=== PATIENT | male | born 1975 | race Two or more races ===

== ENCOUNTER 2016-10-28 14:43 | Emergency (ER) | payer OTHER ==
[2016-10-28 15:00] VITALS: TEMP 97.8; BMI 35.5
--- NOTE | 2016-10-28 15:04 | PDOC ---
[id number] [id number] Migraine Headache/NAUSE VOMITING Time Seen by Provider: 10/28/16 14:58 - History of Present Illness Initial Comments: History obtained via [employer] phones. Pt is [place] speaking. 41 y/o M w/sig PMH of muscular dystrophy presents to the ER w/ c/o dizziness and abdominal pain for the past several days. Dizziness usually lasts for a few seconds but today it remained for 3 hours. He had both sensations of feeling dizzy and as if the room was spinning. The dizziness is improving compared to when it first started despite the prolonged duration. He has had dizziness multiple times in the past, last time being 3-4 weeks ago. He did not seek help for it as it did not last for long. He also c/o abd pain that come and goes and is felt in his whole abdomen. The pain at its worst is rated as a 8/10. This morning he had one episode of emesis which was non-bloody but has not had this vomiting in the past several days. Last BM was 2am last night and he has not passed gas since this morning. He also c/o clogged feeling in his R ear and has used drops to try and clear his ear but has not felt any relief. He has also noticed swelling outside of his R ear but no drainage. Denies any [place], vision changes, ringing in ears, CP, SOB, fever, chills, diarrhea, blood in stool. Does not follow with neurologist. Sees PCP Dr. Narendra Lima. Last saw him in July. 10/28/16 16:21 Past History - Past Medical History Allergies/Adverse Reactions: Allergies Allergy/AdvReac Type Severity Reaction Status Date / Time Penicillins Allergy Rash Verified 10/28/16 15:00 Home Medications: Ambulatory Orders NK [No Known Home Medication] 04/02/16 - Immunization History Immunization Up to Date: Yes - Psycho/Social/Smoking Cessation Hx Anxiety: No Suicidal Ideation: No Smoking Status: No Smoking History: Never smoked Have you smoked in the past 12 months: No Number of Cigarettes Smoked Daily: 0 Information on smoking cessation initiated: No Hx Alcohol Use: No Drug/Substance Use Hx: No Substance Use Type: None Hx Substance Use Treatment: No Review of Systems - Review of Systems Able to Perform ROS?: Yes Comments:: CONSTITUTIONAL: Absent: fever, chills, diaphoresis, generalized weakness, malaise, loss of appetite HEENT: +ear pain, leila-ear swelling Absent: rhinorrhea, nasal congestion, throat pain, throat swelling, difficulty swallowing, mouth swelling,eye pain, visual Changes CARDIOVASCULAR: Absent: chest pain, syncope, palpitations, irregular heart rate , lightheadedness, peripheral edema RESPIRATORY: Absent: cough, shortness of breath, dyspnea with exertion, orthopnea, wheezing, stridor, hemoptysis GASTROINTESTINAL: +abd pain, vomiting, nausea Absent: diarrhea, constipation, melena, hematochezia GENITOURINARY: Absent: dysuria, frequency, urgency, hesitancy, hematuria, flank pain, genital pain ENDOCRINE:Absent: unexplained weight gain, unexplained weight loss, heat intolerance, cold intolerance NEUROLOGIC: +dizziness Absent: headache, seizure, mental status changes, bladder or bowel incontinence PSYCHIATRIC: Absent: anxiety, depression, suicidal or homicidal ideation, hallucinations 10/28/16 16:14 10/28/16 16:14 *Physical Exam - Vital Signs Last Vital Signs Temp Pulse Resp BP Pulse Ox 97.8 F 89 18 103/78 100 10/28/16 14:45 10/28/16 14:45 10/28/16 14:45 10/28/16 14:45 10/28/16 14:45 - Physical Exam Comments: GENERAL: Well developed, well nourished. Awake and alert. No acute distress. HEENT: +impacted L and R ears. +R ear tenderness with otoscopic examination. Normocephalic, atraumatic. PERRLA, EOMI. No conjunctival pallor. Sclera are non- icteric. Moist mucous membranes. NECK: Supple. Full ROM. No lympadenopathy. CARDIOVASCULAR: Regular rate and rhythm. No murmurs, rubs, or gallops. PULMONARY: No evidence of respiratory distress. Lungs clear to auscultation bilaterally. No wheezing, rales or rhonchi. ABDOMINAL: Soft. Non-tender. Non-distended. No rebound or guarding. No organomegaly. Normoactive bowel sounds. EXTREMITIES: No edema. No calf tenderness. SKIN: Warm and dry. Normal capillary refill. No rashes. No jaundice. NEUROLOGICAL: Alert, awake, appropriate. Cranial nerves 2-12 grossly intact. No motor deficits in the in face. Normal speech. PSYCHIATRIC: Cooperative. Good eye contact. Appropriate mood and affect. Heart Score/ECG Review - ECG Intrepretation Comment:: NSR @ 72 bpm QTc 438 ED Treatment Course - LABORATORY CBC & Chemistry Diagram: 10/28/16 17:19 10/28/16 17:19 Medical Decision Making - Medical Decision Making 10/28/16 16:20 Ordered: CBC, CMP, lipase, EKG, Head CT, cardiac profile, abd plain film flat and upright, fluids (NS), meclizine po, zofran iv 10/28/16 17:00 Cerumen disimpaction with peroxide and saline mix (1:2) done in R ear. Will saline flush in 20 min. Then will repeat in R ear. 10/28/16 17:25 R ear flushed with saline with some return of cerumen. Will use peroxide and saline mix (1:2) in L ear. Will flush in 20 min. 10/28/16 17:50 L ear flushed with saline with return of cerumen. Head CT still pending. *DC/Admit/Observation/Transfer Diagnosis at time of Disposition: Vertigo Cerumen impaction Qualifiers: Laterality: right Qualified Code(s): H61.21 - Impacted cerumen, right ear - Discharge Dispostion Disposition: HOME Condition at time of disposition: Stable - Referrals Referrals: Narendra Lima MD [Primary Care Provider] - - Patient Instructions Printed Discharge Instructions: DI for Cerumen Impaction, DI for Hyperkalemia, DI for Benign Paroxysmal Positional Vertigo Additional Instructions: please followup with your regular physician
--- NOTE | 2016-10-28 15:20 | PDOC ---
Attending Attestation - Resident Resident Name: BethelMarcos - ED Attending Attestation I have performed the following: I have examined & evaluated the patient, The case was reviewed & discussed with the resident, I agree w/resident's findings & plan, Exceptions are as noted - HPI HPI: 10/28/16 16:40 41y/o M muscular dystrophy and h/o vertigo p/w 2 complaints: clogged R ear with vertigo for several days, and today intermittent abdominal cramping with nbnb emesis. no abd pain now, no generalized [place], no vision change/speech change/focal deficit. - Physicial Exam PE: 10/28/16 16:41 VSS PERRL, EOMI impacted cerumen in R ear canal, no external otitis neck supple abd soft/nt/nd bs nl. neuro nonfocal, baseline muscle atrophy but fnf intact and full strength. - Medical Decision Making 10/28/16 16:42 Patient seen and evaluated with the resident. I agree with the overall evaluation, assessment, and management with the following summary of visit: 41y/o M with exacerbation of vertigo, likely peripheral 2/2 impaction, r/o underlying infection. low risk overall for CVA. Abdomen benign, vomiting seems more likely 2/2 vertigo. R/O SBO given decreased rectal output. labs, ua, ekg ct head. AXR will irrigate R ear and re-examine. Trial of iv fluids and zofran for nausea/vomiting. Meclizine for vertigo. Reassess: Patient was signed out to the oncoming ED physician to follow-up the results, reassess the patient, and dispo accordingly. Heart Score/ECG Review #1 ECG reviewed & interpreted by me at: 15:08 General ECG Interpretation: Sinus Rhythm, Normal Rate (72), Normal Intervals ( qtc 438), No acute ischemic changes
[2016-10-28] MEDS ORDERED: SODIUM CHLORIDE 1,000 ML IV STA (16:28)
[2016-10-28] MEDS ORDERED: METOCLOPRAMIDE HCL INJECTION 10 MG/2 ML VIAL IVPB ONE (16:28)
[2016-10-28] MEDS ORDERED: MECLIZINE HCL 25 MG TABLET (FP) PO ONE (16:29)
[2016-10-28] MEDS ORDERED: ONDANSETRON 4 MG/2 ML VIAL IVPB ONE (16:44)
[2016-10-28] MEDS ORDERED: MECLIZINE HCL 25 MG TABLET (FP) ONE (17:22)
[2016-10-28] MEDS ORDERED: ONDANSETRON 4 MG/2 ML VIAL ONE (17:22)
[2016-10-28 17:42] LABS: BASOPHIL 0.9 % (0-2.0); MCH 29.1 pg (25.7-33.7); MCHC 33.2 g/dl (32.0-35.9); MEAN CELL VOLUME 87.6 fl (80-96); MEAN PLT VOLUME 9.1 fl (7.5-11.1); NEUTROPHILS 63.4 % (42.8-82.8); PLATELET COUNT 188 K/MM3 (134-434); RDW 13.9 % (11.9-15.9); WHITE BLOOD COUNT 6.2 K/mm3 (4.0-10.0)
[2016-10-28 18:02] LABS: ALBUMIN 3.6 g/dl (3.4-5.0); ANION GAP 6 (8-16); CALCIUM 9.1 mg/dL (8.5-10.1); CO2 30 mmol/L (21-32); COCKROFT - GAULT 226.3; CREATININE 0.6 mg/dL (0.7-1.3); GLUCOSE,RANDOM 85 mg/dL (74-106); SGOT/AST 60 U/L (15-37); SGPT/ALT 83 U/L (12-78)
[2016-10-28 18:06] LABS: ALK PHOS 79 U/L (45-117); BILIRUBIN,TOTAL 0.5 mg/dL (0.2-1.0); TOT PROT 6.6 g/dl (6.4-8.2); TROPONIN I 0.02 ng/ml (0.00-0.05)
[2016-10-28 20:12] LABS: URINE APPEARANCE CLEAR; URINE BILIRUBIN NEGATIVE (NEGATIVE); URINE BLOOD NEGATIVE (NEGATIVE); URINE COLOR STRAW; URINE GLUCOSE (UA) NEGATIVE (NEGATIVE); URINE KETONE NEGATIVE (NEGATIVE); URINE LEUK ESTERASE NEGATIVE (NEGATIVE); URINE NITRITE NEGATIVE (NEGATIVE); URINE PROTEIN NEGATIVE (NEGATIVE); URINE UROBILINOGEN NEGATIVE E.U./dl (0.2-1.0)
[2016-10-28] MEDS ORDERED: SODIUM POLYSTYRENE SULFONATE 15 GM/60 ML BOTTLE PO ONE (20:26)
--- NOTE | 2016-10-28 20:26 | PDOC ---
*Physical Exam - Vital Signs Last Vital Signs Temp Pulse Resp BP Pulse Ox 97.8 F 89 18 103/78 100 10/28/16 14:45 10/28/16 14:45 10/28/16 14:45 10/28/16 14:45 10/28/16 14:45 ED Treatment Course - LABORATORY CBC & Chemistry Diagram: 10/28/16 17:19 10/28/16 17:19 - ADDITIONAL ORDERS Additional order review: Laboratory Results 10/28/16 10/28/16 10/28/16 20:00 17:19 17:19 Sodium 141 Potassium 5.4 H D Chloride 105 Carbon Dioxide 30 Anion Gap 6 L BUN 15 Creatinine 0.6 L Creat Clearance w eGFR > 60 Random Glucose 85 D Calcium 9.1 Total Bilirubin 0.5 D AST 60 H D ALT 83 H D Alkaline Phosphatase 79 Creatine Kinase 276 Creatine Kinase Index 2.5 CK-MB (CK-2) 6.902 H CK-MB (CK-2) Rel Index Cancelled Troponin I 0.02 Total Protein 6.6 Albumin 3.6 Lipase 114 Urine Color Straw Urine Appearance Clear Urine pH 7.0 Urine Protein Negative Urine Glucose (UA) Negative Urine Ketones Negative Urine Blood Negative Urine Nitrite Negative Urine Bilirubin Negative Urine Urobilinogen Negative Ur Leukocyte Esterase Negative 10/28/16 17:19 RBC 5.28 MCV 87.6 MCHC 33.2 RDW 13.9 MPV 9.1 Neutrophils % 63.4 D Lymphocytes % 30.5 D Monocytes % 4.2 Eosinophils % 1.0 Basophils % 0.9 - Medications Given in the ED: ED Medications Discontinued Medications Generic Name Dose Route Start Last Admin Trade Name Freq PRN Reason Stop Dose Admin Sodium Chloride 1,000 mls @ 1,000 mls/hr 10/28/16 16:28 10/28/16 17:37 Normal Saline - IV 10/28/16 17:27 1,000 mls/hr ASDIR STA Administration Meclizine HCl 50 mg 10/28/16 16:29 10/28/16 17:24 Antivert - PO 10/28/16 16:30 50 mg ONCE ONE Administration Metoclopramide HCl 10 mg 10/28/16 16:28 10/28/16 19:48 Reglan Injection - IVPB 10/28/16 16:29 Not Given ONCE ONE Ondansetron HCl 4 mg 10/28/16 16:44 10/28/16 17:32 Zofran Injection IVPB 10/28/16 16:45 4 mg ONCE ONE Administration Medical Decision Making - Medical Decision Making 10/28/16 20:24 ct scan head no acute intracranial pathology abdominal radiograph-no obstructive pattern cbc is normal comp shows k=5.4, pt will take kayexalate po RX eardrops for cerumen discharge home ear cerumen impaction/vertigo *DC/Admit/Observation/Transfer Diagnosis at time of Disposition: Vertigo Impacted cerumen Qualifiers: Laterality: right Qualified Code(s): H61.21 - Impacted cerumen, right ear - Discharge Dispostion Disposition: HOME Condition at time of disposition: Stable - Referrals Referrals: Narendra Lima MD [Primary Care Provider] - - Patient Instructions Printed Discharge Instructions: DI for Cerumen Impaction, DI for Benign Paroxysmal Positional Vertigo, DI for Hyperkalemia Additional Instructions: please followup with your regular physician - Post Discharge Activity
[2016-10-28] MEDS ORDERED: SODIUM POLYSTYRENE SULFONATE 15 GM/60 ML BOTTLE ONE (20:41)
[2016-10-28 21:05] VITALS: BP 113/79; PULSE 73
--- NOTE | 2016-10-29 11:11 | EKG ---
Test Reason : Blood Pressure : / mmHG Vent. Rate : 072 BPM Atrial Rate : 072 BPM P-R Int : 196 ms QRS Dur : 088 ms QT Int : 400 ms P-R-T Axes : 028 005 009 degrees QTc Int : 438 ms NORMAL SINUS RHYTHM MINIMAL VOLTAGE CRITERIA FOR LVH, MAY BE NORMAL VARIANT BORDERLINE ECG WHEN COMPARED WITH ECG OF 02-APR-2016 04:44, VENT. RATE HAS DECREASED BY 48 BPM INCOMPLETE RIGHT BUNDLE BRANCH BLOCK IS NO LONGER PRESENT CLINICAL CORRELATION IS RECOMMENDED Confirmed by ALMA VELASCO MD ([id number]) on 10/29/2016 11:11:17 AM Referred By: Confirmed By:ALMA VELASCO MD
== END 2016-10-28 21:06 | disposition home or self-care (01) ==
LOC: JER 14:43
PROC: 3E1B78Z Irrigation of Ear using Irrigating Substance, Via Natural or Artificial Opening (ICD-10-PCS; principal; 2016-10-28)
DX: R42 Dizziness and giddiness (principal); H61.23 Impacted cerumen, bilateral
CPT/HCPCS: 36415; 69209; 70450-TC; 74020-TC; 80053; 81003; 82550; 82553; 83690; 84484; 85025; 93005; 93010; 99284-25

== ENCOUNTER 2017-07-08 13:05 | Emergency (ER) | payer OTHER ==
[2017-07-08 13:27] VITALS: BP 138/84; PULSE 108; TEMP 98.1; BMI 32.8
--- NOTE | 2017-07-08 15:15 | PDOC ---
History of Present Illness - General Chief Complaint: Abscess Boil Stated Complaint: WOUND TO HEAD Time Seen by Provider: 07/08/17 15:02 History Source: Patient Exam Limitations: No Limitations - History of Present Illness Initial Comments: CHIEF COMPLAINT: 42 y/o afebrile male with PMH muscular dystrophy c/o abscess to right side of neck x 1 week. HISTORY OF PRESENT ILLNESS: The patient states he felt feverish last week but not since then. He states the area is painful. He denies all other complaints and states it is not draining. Vital signs on arrival are notable for pulse of 108 and O2 sat of 93% on RA REVIEW OF SYSTEMS: GENERAL/CONSTITUTIONAL: Subjective fever 1 week ago - resolved. No weakness. No weight change. HEAD, EYES, EARS, NOSE AND THROAT: No change in vision. No ear pain or discharge. No sore throat.. MUSCULOSKELETAL: No joint or muscle swelling or pain. No neck or back pain. SKIN: +Painful abscess NEUROLOGIC: No headache, vertigo, loss of consciousness, or loss of sensation. PHYSICAL EXAM: GENERAL: The patient is awake, alert, and fully oriented, in no acute distress. HEAD: Normal with no signs of trauma. EXTREMITIES: Normal range of motion, no edema. NEUROLOGICAL: Normal speech, normal gait. SKIN: 2cm in diameter raised fluctuant abscess on right side of neck just inside hairline with central head. Past History - Past Medical History Allergies/Adverse Reactions: Allergies Allergy/AdvReac Type Severity Reaction Status Date / Time Penicillins Allergy Rash Verified 07/08/17 13:23 Home Medications: Ambulatory Orders Sulfamethoxazole/Trimethoprim [Bactrim Ds -] 1 tab PO BID #20 tablet 07/08/17 CVA: No COPD: No DVT: No Other medical history: MUSCULAR DYSTROPHY - Immunization History Immunization Up to Date: Yes - Suicide/Smoking/Psychosocial Hx Smoking Status: No Smoking History: Never smoked Have you smoked in the past 12 months: No Number of Cigarettes Smoked Daily: 0 Information on smoking cessation initiated: No Hx Alcohol Use: No Drug/Substance Use Hx: No Substance Use Type: None Hx Substance Use Treatment: No *Physical Exam - Vital Signs Last Vital Signs Temp Pulse Resp BP Pulse Ox 98.1 F 108 H 17 138/84 93 L 07/08/17 13:24 07/08/17 13:24 07/08/17 13:24 07/08/17 13:24 07/08/17 13:24 Procedures - Incision and Drainage I&D Site: Right: Other (neck) Betadine cleansed: Yes Blade Size: 10 Plain Packing: No Complications: none Dressing: Yes Medical Decision Making - Medical Decision Making A/P: 42 y/o male with right sided head/neck abscess. Incised and drained the abscess. Cleaned and loosely covered. Will send bactrim to rx. Sent wound culture. Instructed patient to keep wound clean/dry/loosely covered, take entire course of antibiotics and return to the ER with any worsening or concerning symptoms. The patient verbalizes understanding of all instructions, has no further questions and is awaiting discharge. *DC/Admit/Observation/Transfer Diagnosis at time of Disposition: Abscess of skin Qualifiers: Site of cutaneous abscess: neck Qualified Code(s): L02.11 - Cutaneous abscess of neck - Discharge Dispostion Disposition: HOME Condition at time of disposition: Improved - Prescriptions Prescriptions: Sulfamethoxazole/Trimethoprim [Bactrim Ds -] 1 tab PO BID #20 tablet - Referrals Referrals: Narendra Lmia MD [Primary Care Provider] - - Patient Instructions Printed Discharge Instructions: DI for Incision and Drainage of a Skin Abscess Additional Instructions: Discharge Instructions: -Please keep the area clean, dry and loosely covered. -A prescription for antibiotics was sent to your pharmacy; please take entire course -Follow up with your doctor within 1 week -Return to the ER with any worsening or concerning symptoms Instrucciones de descarga: -Por favor, mantenga el timmy limpia, seca y ligeramente cubierta. -Abby receta de antibiticos fue enviada a [facility]; por favor serafin todo el curso -Siga con mcf[facility]en doctor dentro de 1 semana -Volver a la germaine de urgencias con cualquier empeoramiento o sntomas Print Language: MACEDONIAN - Post Discharge Activity
== END 2017-07-08 15:28 | disposition home or self-care (01) ==
LOC: JERFT 13:05
PROC: 0J940ZZ Drainage of Right Neck Subcutaneous Tissue and Fascia, Open Approach (ICD-10-PCS; principal; 2017-07-08)
DX: L02.11 Cutaneous abscess of neck (principal); G71.0 Muscular dystrophy
CPT/HCPCS: 10160; 87070; 87077; 87205; 99281-25

== ENCOUNTER 2017-07-27 05:50 | Day surgery (SDC) | payer OTHER ==
[2017-07-27] MEDS ORDERED: ONDANSETRON 4 MG/2 ML VIAL IVPUSH ONE (07:26)
[2017-07-27] MEDS ORDERED: SODIUM CHLORIDE 0.9% 1000 ML INFUS.BAG IV ONE (07:26)
[2017-07-27] MEDS ORDERED: FAMOTIDINE 20 MG/50 ML IVPB 20 MG/50 ML MG IVPB ONE ×2 (07:26→07:55)
[2017-07-27] MEDS ORDERED: morphine CARPU-JECT 4 MG/1 ML DISP.SYRIN IVPUSH ONE (07:26)
--- NOTE | 2017-07-27 07:26 | PDOC ---
History of Present Illness - General Chief Complaint: Pain, Acute Stated Complaint: ABD PAIN Time Seen by Provider: 07/27/17 07:20 - History of Present Illness Initial Comments: 07/27/17 07:45 42yo male presents from home c/o diffuse abd pain that started at midnight and worsened around 4am after having a hard bm. Pt denies n/v. C/o diffuse abd pain. No radiation of the pain. Pt denies f/c. No urinary complaints. Pt denies prior hx of similar. Denies hematuria or difficulty starting his flow of urine. Pt denies cp/sob. Pt is writhing in pain. Pt denies all other complaints. 07/27/17 07:47 PMHx: gerd Pshx: adenoid removal Allergies: PCN Soc: denies smoking, etoh, drugs Past History - Past Medical History Allergies/Adverse Reactions: Allergies Allergy/AdvReac Type Severity Reaction Status Date / Time Penicillins Allergy Rash Verified 07/27/17 06:25 Home Medications: Ambulatory Orders Acetaminophen 650 mg PO PRN 07/27/17 Pantoprazole Sodium [Protonix] 40 mg PO DAILY 07/27/17 CVA: No COPD: No DVT: No - Immunization History Immunization Up to Date: Yes - Suicide/Smoking/Psychosocial Hx Smoking Status: No Smoking History: Never smoked Have you smoked in the past 12 months: No Number of Cigarettes Smoked Daily: 0 Information on smoking cessation initiated: No Hx Alcohol Use: No Drug/Substance Use Hx: No Substance Use Type: None Hx Substance Use Treatment: No Review of Systems - Review of Systems Able to Perform ROS?: Yes Is the patient limited Yakut proficient: No Constitutional: No: Chills, Fever Respiratory: No: Cough, Shortness of Breath Cardiac (ROS): No: Chest Pain ABD/GI: Yes: Abdominal cramping, Other (abdominal pain). No: Diarrhea, Nausea, Vomiting : No: Burning, Dysuria, Hematuria Musculoskeletal: No: Back Pain All Other Systems: Reviewed and Negative *Physical Exam - Vital Signs Last Vital Signs Temp Pulse Resp BP Pulse Ox 97.6 F 74 20 113/82 100 07/27/17 05:55 07/27/17 05:55 07/27/17 05:55 07/27/17 05:55 07/27/17 05:55 - Physical Exam General Appearance: Yes: Nourished, Appropriately Dressed, Apparent Distress, Obese HEENT: positive: EOMI, Normal ENT Inspection, Pharynx Normal. negative: Rhinorrhea Neck: positive: Trachea midline, Normal Thyroid, Supple. negative: Tender, Rigid Respiratory/Chest: positive: Lungs Clear, Normal Breath Sounds. negative: Respiratory Distress Cardiovascular: positive: Regular Rhythm, Regular Rate, S1, S2. negative: Edema Gastrointestinal/Abdominal: positive: Normal Bowel Sounds, Tender, Guarding ( voluntary guarding), Tenderness (diffuse). negative: Rebound Musculoskeletal: negative: CVA Tenderness Extremity: positive: Normal Capillary Refill, Normal Inspection, Normal Range of Motion Integumentary: positive: Normal Color, Dry, Warm Neurologic: positive: public health professor II-XII NML intact, Fully Oriented, Motor Strength 5/5 Heart Score/ECG Review - ECG Intrepretation Comment:: 07/27/17 08:19 sinus at 62 w 1st degree av block nl axis, nl interval, t wave inversions III which are nonspecific ED Treatment Course - LABORATORY CBC & Chemistry Diagram: 07/27/17 08:00 07/27/17 08:10 Medical Decision Making - Medical Decision Making 07/27/17 07:50 a/p: 42yo male with acute onset of diffuse abd pain concern for constipation vs pancreatitis vs colitis vs perf viscous given amount of pain will check labs, ua, ct abd/pelvis will medicate with ivf hydration, pain control, pepcid will give morphine for pain need UA lipase no abd surgical hx 07/27/17 11:23 discussed lab results with the patient ct shows early appendicitis call placed to dr. gonzalez pt updated with plan 07/27/17 12:[address] Gonzalez who will see the patient in consult recommends admission to hospitalist PMD is Dr. Lima 07/27/17 13:13 case discussed with [facility] - accepts pt to [facility] *DC/Admit/Observation/Transfer Diagnosis at time of Disposition: Acute appendicitis - Discharge Dispostion Condition at time of disposition: Fair Admit: Yes - Referrals Referrals: Narendra Lima MD [Primary Care Provider] - - Patient Instructions - Post Discharge Activity
[2017-07-27] MEDS ORDERED: MORPHINE SULFATE 10 MG/1 ML *VIAL ONE (07:54)
[2017-07-27] MEDS ORDERED: ONDANSETRON 4 MG/2 ML VIAL ONE (07:55)
[2017-07-27 09:27] LABS: ALBUMIN 3.5 g/dl (3.4-5.0); ANION GAP 8 (8-16); BLOOD UREA NITROGEN 15 mg/dL (7-18); CALCIUM 9.1 mg/dL (8.5-10.1); CHLORIDE 105 mmol/L (98-107); CO2 27 mmol/L (21-32); CREATININE 0.7 mg/dL (0.7-1.3); GLUCOSE,RANDOM 104 mg/dL (74-106); LIPASE 76 U/L (73-393); SGPT/ALT 109 U/L (12-78); SODIUM 140 mmol/L (136-145)
[2017-07-27 09:32] LABS: ALK PHOS 112 U/L (45-117); BILIRUBIN,TOTAL 0.6 mg/dL (0.2-1.0)
[2017-07-27 09:39] LABS: MAGNESIUM 2.2 mg/dL (1.8-2.4); POTASSIUM 5.6 mmol/L (3.5-5.1)
[2017-07-27 09:40] LABS: SGOT/AST 89 U/L (15-37)
[2017-07-27] MEDS ORDERED: LACTATED RINGERS SOLUTION 1000 ML INFUS.BAG IV ONE (09:46)
[2017-07-27 10:06] LABS: BASO % 0.4 % (0-2.0); EOS % 1.5 % (0-4.5); HEMATOCRIT 48.1 % (35.4-49); HEMOGLOBIN 16.1 GM/dL (11.7-16.9); LYMPH % 38.8 % (8-40); MCH 29.7 pg (25.7-33.7); MCHC 33.5 g/dl (32.0-35.9); MEAN CELL VOLUME 88.7 fl (80-96); MEAN PLT VOLUME 9.4 fl (7.5-11.1); MONO % 5.6 % (3.8-10.2); NEUT % 53.7 % (42.8-82.8); PLATELET COUNT 194 K/MM3 (134-434); RBC 5.43 M/mm3 (4.00-5.60); RDW 13.7 % (11.9-15.9); WHITE BLOOD COUNT 6.4 K/mm3 (4.0-10.0)
[2017-07-27 10:16] LABS: URINE APPEARANCE CLEAR; URINE BILIRUBIN NEGATIVE (NEGATIVE); URINE BLOOD NEGATIVE (NEGATIVE); URINE COLOR YELLOW; URINE GLUCOSE (UA) NEGATIVE (NEGATIVE); URINE KETONE NEGATIVE (NEGATIVE); URINE LEUK ESTERASE NEGATIVE (NEGATIVE); URINE NITRITE NEGATIVE (NEGATIVE); URINE PROTEIN NEGATIVE (NEGATIVE)
--- NOTE | 2017-07-27 12:12 | PDOC ---
*Physical Exam - Vital Signs Last Vital Signs Temp Pulse Resp BP Pulse Ox 97.6 F 74 20 113/82 100 07/27/17 05:55 07/27/17 05:55 07/27/17 05:55 07/27/17 05:55 07/27/17 05:55 07/27/17 12:10 42 YOM h/o of only T&A abdominal pain awoke him at midnight, had BM and it got even worse. Arrived to ED writhing in pain. All labs okay except lactate 2.4. CT with early appendicitis, multiple appendicoliths. ED Treatment Course - LABORATORY CBC & Chemistry Diagram: 07/27/17 08:00 07/27/17 08:10 - ADDITIONAL ORDERS Additional order review: Laboratory Results 07/27/17 07/27/17 07/27/17 09:16 08:10 08:10 Sodium 140 Potassium 5.6 H Chloride 105 Carbon Dioxide 27 Anion Gap 8 BUN 15 Creatinine 0.7 Creat Clearance w eGFR > 60 Random Glucose 104 D Lactic Acid 2.4 H* Calcium 9.1 Magnesium 2.2 Total Bilirubin 0.6 AST 89 H D ALT 109 H D Alkaline Phosphatase 112 D Total Protein 7.0 Albumin 3.5 Lipase 76 Urine Color Yellow Urine Appearance Clear Urine pH 7.0 Ur Specific [place] 1.021 Urine Protein Negative Urine Glucose (UA) Negative Urine Ketones Negative Urine Blood Negative Urine Nitrite Negative Urine Bilirubin Negative Urine Urobilinogen 2.0 Ur Leukocyte Esterase Negative 07/27/17 08:00 RBC 5.43 MCV 88.7 MCHC 33.5 RDW 13.7 MPV 9.4 Neutrophils % 53.7 Lymphocytes % 38.8 D Monocytes % 5.6 Eosinophils % 1.5 Basophils % 0.4 - Medications Given in the ED: ED Medications Discontinued Medications Generic Name Dose Route Start Last Admin Trade Name Freq PRN Reason Stop Dose Admin Famotidine/Sodium Chloride 20 mg in 50 mls @ 100 mls/hr 07/27/17 07:26 08:09 Pepcid 20 Mg Premixed Ivpb - IVPB 07/27/17 07:55 100 mls/hr ONCE ONE Administration Lactated Ringer's 1,000 ml 07/27/17 09:46 07/27/17 10:32 Lactated Ringers Solution IV 07/27/17 09:47 1,000 ml ONCE ONE Administration Morphine Sulfate 4 mg 07/27/17 07:26 07/27/17 08:08 Morphine Injection - IVPUSH 07/27/17 07:27 4 mg ONCE ONE Administration Ondansetron HCl 4 mg 07/27/17 07:26 07/27/17 08:09 Zofran Injection IVPUSH 07/27/17 07:27 4 mg ONCE ONE Administration Sodium Chloride 1,000 ml 07/27/17 07:26 07/27/17 08:53 Normal Saline - IV 07/27/17 07:27 1,000 ml ONCE ONE Administration Medical Decision Making - Medical Decision Making 07/27/17 12:[address] Thomas who recommends 2 GM ceftriaxone now and 500 mg Flagyl q8h. Antibiotic ordered placed as above. Consult order placed to Dr. Thomas. *DC/Admit/Observation/Transfer - Referrals Referrals: Narendra Lima MD [Primary Care Provider] - - Patient Instructions - Post Discharge Activity
[2017-07-27] MEDS ORDERED: CEFTRIAXONE 2 GM in DEXTROSE 5%-WATER - 100 ML IVPB ONE (12:17)
--- NOTE | 2017-07-27 12:17 | EKG ---
Test Reason : Blood Pressure : / mmHG Vent. Rate : 062 BPM Atrial Rate : 062 BPM P-R Int : 210 ms QRS Dur : 088 ms QT Int : 430 ms P-R-T Axes : 054 006 005 degrees QTc Int : 436 ms SINUS RHYTHM WITH 1ST DEGREE A-V BLOCK MINIMAL VOLTAGE CRITERIA FOR LVH, MAY BE NORMAL VARIANT ABNORMAL ECG WHEN COMPARED WITH ECG OF 28-OCT-2016 15:08, NO SIGNIFICANT CHANGE WAS FOUND BASELINE ARTIFACT Confirmed by ALMA VELASCO MD ([id number]) on 07/27/2017 12:17:06 PM Referred By: Confirmed By:ALMA VELASCO MD
[2017-07-27] MEDS ORDERED: CEFTRIAXONE 2 GM/100 ML BAG IVPB ONE (12:41)
[2017-07-27] MEDS ORDERED: MORPHINE SULFATE 10 MG/1 ML *VIAL IVPUSH PRN (13:08)
[2017-07-27] MEDS ORDERED: SODIUM CHLORIDE 1,000 ML IV SCH (13:15)
[2017-07-27] MEDS ORDERED: ONDANSETRON 4 MG/2 ML VIAL IVPUSH PRN (13:16)
--- NOTE | 2017-07-27 14:13 | CONSULT ---
- Consultation REQUESTING PROVIDER: Gerald ISLAS CONSULT REQUEST: We have been asked to surgically evaluate this patient for ( specify). PCP: HISTORY OF PRESENT ILLNESS: CTSVasile who is a 42 y/o male who presented w/ sudden onset of generalized abdominal pain starting at 8 PM last night now localized to the RLQ; pain is sharp and w/o radiation; worse w/ moving around; less w/ lying still; he denies n/v; he has no appetite; no other hx or GI/ c/ o. He came to the ER for evaluation. PMHx: muscle disease PSHx: tonsils, varicocoele; ? ear surgery Home Medications Medication Instructions Recorded Acetaminophen 650 mg PO PRN 07/27/17 Pantoprazole Sodium [Protonix] 40 mg PO DAILY 07/27/17 Allergies Allergy/AdvReac Type Severity Reaction Status Date / Time Penicillins Allergy Rash Verified 07/27/17 06:25 PHYSICAL EXAM: GENERAL: Awake, alert, and fully oriented, in no acute distress. HEAD: Normal with no signs of trauma. EYES: sclera anicteric, conjunctiva clear. NECK: Normal ROM, supple without lymphadenopathy, JVD, or masses. ABDOMEN: Soft, tender RLQ w/ guarding and rebound, not distended, normoactive bowel sounds, no masses. No organomegaly. Small reducible umbilical hernia Rovsings and psoas and obturator signs are present. MUSCULOSKELETAL: Normal ROM at all joints. No bony deformities or tenderness. No CVA tenderness. UPPER EXTREMITIES: 2+ pulses, warm, well-perfused. No cyanosis. Cap refill <2 seconds. No peripheral edema. LOWER EXTREMITIES: 2+ pulses, warm, well-perfused. No calf tenderness. No peripheral edema. NEUROLOGICAL: Normal speech, gait not observed. PSYCH: Cooperative in Citizen Of [place]. Good eye contact. Appropriate mood and affect. SKIN: Warm, dry, normal turgor, no rashes or lesions noted. Vital Signs Temperature 97.7 F 07/27/17 13:25 Pulse Rate 68 07/27/17 13:25 Respiratory Rate 20 07/27/17 13:25 Blood Pressure 109/72 07/27/17 13:25 O2 Sat by Pulse Oximetry (%) 99 07/27/17 13:25 Lab Results WBC 6.4 K/mm3 (4.0-10.0) 07/27/17 08:00 RBC 5.43 M/mm3 (4.00-5.60) 07/27/17 08:00 Hgb 16.1 GM/dL (11.7-16.9) 07/27/17 08:00 Hct 48.1 % (35.4-49) 07/27/17 08:00 MCV 88.7 fl (80-96) 07/27/17 08:00 MCHC 33.5 g/dl (32.0-35.9) 07/27/17 08:00 RDW 13.7 % (11.9-15.9) 07/27/17 08:00 Plt Count 194 K/MM3 (134-434) 07/27/17 08:00 Sodium 140 mmol/L (136-145) 07/27/17 08:10 Potassium 5.6 mmol/L (3.5-5.1) H 07/27/17 08:10 Chloride 105 mmol/L (98-107) 07/27/17 08:10 Carbon Dioxide 27 mmol/L (21-32) 07/27/17 08:10 Anion Gap 8 (8-16) 07/27/17 08:10 BUN 15 mg/dL (7-18) 07/27/17 08:10 Creatinine 0.7 mg/dL (0.7-1.3) 07/27/17 08:10 Random Glucose 104 mg/dL (74-106) D 07/27/17 08:10 Calcium 9.1 mg/dL (8.5-10.1) 07/27/17 08:10 CT a/p reviewed and is c/w early appendicitis. IMP: acute appendicitis PLAN: lap possible open appendectomy;r/b/t/a's d/w the patient in Citizen Of [place] and informed consent obtained; all ?'s were answered. Ángel Martinez MD FACS Visit type - Case Type Case Type: ED Admission - Emergency Emergency Visit: Yes Care time: The patient presented to the Emergency Department on the above date and was hospitalized for further evaluation of their emergent condition. - New patient This patient is new to me today: Yes Date on this admission: 07/27/17 - Critical Care Critical Care patient: No
[2017-07-27] MEDS ORDERED: BUPIVACAINE HCL/PF 0.5% (5MG/ML) 10 ML VIAL IJ ONE (15:36)
--- NOTE | 2017-07-27 16:11 | OP ---
Operative Note - Note: Operative Date: 07/27/17 Pre-Operative Diagnosis: acute appendicitis Operation: lap appendectomy Findings: acute appendicitis Post-Operative Diagnosis: Same as Pre-op Surgeon: Ángel Martinez Anesthesiologist/PLUCK SEPARATOR: Benji Lafleur Anesthesia: General Specimens Removed: appendix Estimated Blood Loss (mls): 10
[2017-07-27] MEDS ORDERED: ELECTROLYTE-148 SOLN 1,000 ML IV SCH (16:15)
[2017-07-27] MEDS ORDERED: oxyCODONE HCL 5 MG TABLET PO PRN (16:24)
[2017-07-27] MEDS ORDERED: ACETAMINOPHEN 325 MG TABLET (FP) PO PRN (16:24)
[2017-07-27 16:43] VITALS: BMI 34.2
--- NOTE | 2017-07-27 18:54 | HP ---
Admitting History and Physical - Admission Chief Complaint: abdominal pain History of Present Illness: 42 year old female with muscular dystrophy, gerd admitted with abdominal pain, leila umbilical since last night it worsened after a BM and he came to the ED. He denies fever, chills, he was taken to the OR shortly after noting to have acute appendicitis. Seen in the PACU he feels well, awake, tolerated surgery. 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) Infectious Disease: Yes: Other (pneumonia in March 2014) Musculoskeletal: Yes: Other (Myotonic muscular dystrophy) - Past Surgical History Past Surgical History: Yes: Tonsillectomy - Smoking History Smoking history: Never smoked Have you smoked in the past 12 months: No Aproximately how many cigarettes per day: 0 - Alcohol/Substance Use Hx Alcohol Use: No History of Substance Use: reports: None - Social History ADL: Independent Home Medications - Allergies Allergies/Adverse Reactions: Allergies Allergy/AdvReac Type Severity Reaction Status Date / Time Penicillins Allergy Rash Verified 07/27/17 06:25 - Home Medications Home Medications: Ambulatory Orders Acetaminophen 650 mg PO PRN 07/27/17 Pantoprazole Sodium [Protonix] 40 mg PO DAILY 07/27/17 Review of Systems - Review of Systems Constitutional: reports: No Symptoms Eyes: reports: No Symptoms HENT: reports: No Symptoms Neck: reports: No Symptoms Cardiovascular: reports: No Symptoms Respiratory: reports: No Symptoms Gastrointestinal: reports: Abdominal Pain Genitourinary: reports: No Symptoms Musculoskeletal: reports: No Symptoms Integumentary: reports: No Symptoms Endocrine: reports: No Symptoms Hematology/Lymphatic: reports: No Symptoms Psychiatric: reports: No Symptoms Physical Examination Vital Signs: Vital Signs Temperature 97.9 F 07/27/17 18:48 Pulse Rate 83 07/27/17 18:48 Respiratory Rate 20 07/27/17 18:48 Blood Pressure 120/70 07/27/17 18:48 O2 Sat by Pulse Oximetry (%) 98 07/27/17 18:48 Constitutional: Yes: No Distress Eyes: Yes: Conjunctiva Clear Neck: Yes: Supple Cardiovascular: Yes: Regular Rate and Rhythm, S1, S2 Respiratory: Yes: CTA Bilaterally, Diminished, On Nasal O2 Gastrointestinal: Yes: Normal Bowel Sounds, Soft, Other (abd incisions CDI) Extremities: Yes: WNL Edema: No Wound/Incision: Yes: Clean/Dry, Dressing Dry and Intact Neurological: Yes: Alert, Oriented, Cran Nerves II-XII Intact Labs: CBC, BMP 07/27/17 08:00 07/27/17 08:10 Imaging - Results Chest X-ray: Report Reviewed Cat Scan: Report Reviewed Problem List - Problems (1) Acute appendicitis Code(s): K35.80 - UNSPECIFIED ACUTE APPENDICITIS (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 Acute appendicitis - S/p appendectomy today - Received pre op abx - Morphine prn pain - cont ivf - clear diet - Surgery seeing 2. DVt - SCDs Dispo: - Home tomorrow pending surgery clearance Visit type - Emergency Visit Emergency Visit: Yes Care time: The patient presented to the Emergency Department on the above date and was hospitalized for further evaluation of their emergent condition. - New Patient This patient is new to me today: Yes Date on this admission: 07/27/17 - Critical Care Critical Care patient: No
[2017-07-28 07:30] LABS: BASO % 0.2 % (0-2.0); EOS % 0.1 % (0-4.5); HEMOGLOBIN 14.1 GM/dL (11.7-16.9); LYMPH % 25.1 % (8-40); MCHC 33.6 g/dl (32.0-35.9); MEAN CELL VOLUME 89.2 fl (80-96); MEAN PLT VOLUME 9.3 fl (7.5-11.1); MONO % 5.3 % (3.8-10.2); NEUT % 69.3 % (42.8-82.8); PLATELET COUNT 209 K/MM3 (134-434); RDW 13.5 % (11.9-15.9); WHITE BLOOD COUNT 8.4 K/mm3 (4.0-10.0)
[2017-07-28 07:58] LABS: ALBUMIN 3.1 g/dl (3.4-5.0); ALK PHOS 90 U/L (45-117); ANION GAP 7 (8-16); BILIRUBIN,TOTAL 0.6 mg/dL (0.2-1.0); BLOOD UREA NITROGEN 8 mg/dL (7-18); CALCIUM 9.1 mg/dL (8.5-10.1); CHLORIDE 103 mmol/L (98-107); CO2 31 mmol/L (21-32); CREATININE 0.5 mg/dL (0.7-1.3); GLUCOSE,RANDOM 99 mg/dL (74-106); POTASSIUM 4.7 mmol/L (3.5-5.1); SGOT/AST 31 U/L (15-37); SGPT/ALT 73 U/L (12-78); SODIUM 141 mmol/L (136-145); TOT PROT 5.8 g/dl (6.4-8.2)
--- NOTE | 2017-07-28 08:00 | PN ---
Progress Note (short form) - Note Progress Note: surgery POD #1 laparoscopic appendectomy, patient seen and examined at bedside. Pt states his pain is controlled, he is tolerating a clear diet and voiding without restriction. He denies any nausea, cp, SOB, or vomiting. Vital Signs Temp 98.1 F 07/28/17 06:00 Pulse 67 07/28/17 06:00 Resp 20 07/28/17 06:00 BP 101/60 07/28/17 06:00 Pulse Ox 98 07/27/17 21:00 Intake & Output 07/27/17 07/27/17 07/28/17 11:59 23:59 11:59 Intake Total 1750 900 Output Total 1450 600 Balance 300 300 Weight 180 lb 212 lb Intake: IV 1600 800 Plasma-Lyte 148 - 1,000 800 ml @ 75 mls/hr IV ASDIR HERNÁN Rx#:[id number] IVPB 100 Oral 150 Output: Urine 1450 600 Void 650 600 Other: Voiding Method Urinal Bowel Movement No Height 5 ft 8 in 5 ft 6 in Body Mass Index (BMI) 27.3 34.2 Weight Measurement Method Stated by Patient Weight Measurement Method Estimated by Staff CBC, BMP 07/28/17 06:45 PE: A&Ox3, NAD unlabored resp on 2L NC Abdomen obese, ND and NT in all quadrants, Incision sites C/D/I with no d/c, no evidence of tracking erythema. B/L LE compartments, soft, supple and non-tender, scds in place with + 2 pedal pulses Problem List - Problems (1) Acute appendicitis Assessment/Plan: S/p laparoscopic appendectomy doing well. 1) advance diet as tolerated 2) OOB as tolerated and up to chair for meals 3) DVT prophylaxis 4) D/c planning when appropriate Code(s): K35.80 - UNSPECIFIED ACUTE APPENDICITIS
--- NOTE | 2017-07-28 09:13 | PN ---
Progress Note (short form) - Note Progress Note: Attending Surgeon POD #1 Patient seen and evaluated; concur w/ a/p as outlined by MOIRA Ruvalcaba; d/c home to office f/u 7-10 days; once ambulating and tolerating a regular diet Ángel Martinez MD FAC
[2017-07-28] MEDS ORDERED: CEFTRIAXONE IN IS-OSM DEXTROSE 2 GM/50 ML BAG IVPB SCH (10:00)
[2017-07-28] MEDS ORDERED: PANTOPRAZOLE 40 MG TABLET (FP) PO SCH (10:00)
--- NOTE | 2017-07-28 10:29 | OP ---
DATE OF OPERATION: 07/27/2017 PREOPERATIVE DIAGNOSIS: Acute appendicitis. POSTOPERATIVE DIAGNOSIS: Acute appendicitis. PROCEDURE: Laparoscopic appendectomy. SURGEON: Ángel Martinez MD ANESTHESIA: General. OPERATIVE FINDINGS: Acute appendicitis. The rest of the findings were unremarkable. DESCRIPTION OF PROCEDURE: The patient was placed on the operating room in supine position, and after the induction of general anesthesia and placement of a Smith catheter, the patient's abdomen was prepped with ChloraPrep and draped in sterile fashion. A time-out was taken and pneumoperitoneum established at the umbilicus using a Veress needle to an intra-abdominal pressure of 15 mmHg. A 5-mm supraumbilical port was placed as well as a 12-mm suprapubic port and a left lower quadrant 5-mm port. Laparoscopy was carried out, and the previously noted findings were observed. The appendix was grasped and the mesoappendix serially divided using the LigaSure device. Once the clearly freed of the mesoappendix, the base of the appendix was identified by the confluence of the tinea at the right colon. At this point, a blue load Endo [place] was placed across the base of the appendix and fired. The appendix was then placed in a specimen retrieval bag and brought out through the suprapubic port and pneumoperitoneum reestablished. Hemostasis was verified and noted to be good, and irrigation was carried out with normal saline. Hemostasis was again verified, and then all ports were removed under laparoscopic vision without evidence of bleeding from the port sites. The pneumoperitoneum was evacuated, and the defect at the suprapubic port site was closed with a 2-0 Vicryl [id number] suture. All port sites were infiltrated with 0.5% Marcaine then the skin edges were reapproximated with 4-0 Monocryl in a subcuticular fashion. Steri-Strips and Band-Aid dressings were placed and the procedure terminated at this point and the patient aroused from general anesthesia and transferred to the post anesthesia care unit in stable condition awake and alert. ESTIMATED BLOOD LOSS: Minimal. DRAINS: None. SPECIMEN: Appendix to pathology. I, Ángel Martinez, was physically present in the operating room from the time the patient was placed on the operating room table until he was transferred to the post anesthesia care unit in [employer]. MD CARMEN Cedeño/[id number]
--- NOTE | 2017-07-28 10:29 | PN ---
Progress Note (short form) - Note Progress Note: ID Full note dictated Problem List - Problems (1) Muscular dystrophy Code(s): G71.0 - MUSCULAR DYSTROPHY (2) Acute appendicitis Code(s): K35.80 - UNSPECIFIED ACUTE APPENDICITIS
--- NOTE | 2017-07-28 11:18 | CONS ---
DATE OF CONSULTATION: HISTORY: This is a 42-year-old [place] man with a history of muscular dystrophy who I am asked to see for antibiotic treatment for acute appendicitis. He presented to the hospital with chief complaint of sudden onset of abdominal pain, which began the night before and localized to his right lower quadrant. He was seen in consultation by Dr. Martinez of surgery with CT findings thought consistent with early appendicitis. He was taken to the operating room where an operative note reviewed showed acute appendicitis, and he was treated with a combination of ceftriaxone and metronidazole. Earlier today, Dr. Martinez had seen him and has discharged him with no recommendation for further antibiotic. He has been afebrile throughout his course here, and other than his history of muscular dystrophy with which he walks with a cane, he has no other significant medical problems. SOCIAL HISTORY: Nonsmoker. No drugs. Lives with his mother. No HIV risk factors. FAMILY HISTORY: Noncontributory. REVIEW OF SYSTEMS: All systems reviewed and noncontributory. PHYSICAL EXAMINATION: General: He is a well-nourished appearing male in no acute distress. Vital Signs: The temperature is 98.1, pulse 67, blood pressure 100/60, respirations 20. Neck: Supple. Lungs: Clear to P and A. Heart: S1, S2. Regular rhythm without murmur. Abdomen: Reveal a laparoscopic incision. LABORATORY DATA: White count 8.4, hemoglobin 14, platelets 209, BUN 8, creatinine 0.5, lactic acid 2.4. Liver enzymes within normal limits. No other cultures obtained. ASSESSMENT: A 42-year-old male with a history of muscular dystrophy who presents with abdominal pain found to have acute appendicitis and taken to the operating room already for laparoscopic appendectomy confirming findings of acute appendicitis. Clinically, he is doing well. No evidence of peritonitis or fever. He will be discharged as per Dr. Martinez on no antibiotics. SHIKHA PARRA M.D. MARLENE/[id number]
--- NOTE | 2017-07-28 11:26 | PN ---
Progress Note (short form) - Note Progress Note: Anesthesia POD#1 S/P Lap Appendectomy under GA VSS,no N/V,started oral fluids. Pain is under control. A/P No complications to anesthesia seen. Laura Polanco MD.
--- NOTE | 2017-07-28 15:21 | DS ---
Physical Exam: SUBJECTIVE: Patient seen and examined OBJECTIVE: Vital Signs Period Temp Pulse Resp BP Sys/Maddox Pulse Ox Last 24 Hr 97.9 F-98.5 F 67-86 16-20 98-120/53-75 94-100 PHYSICAL EXAM GENERAL: The patient is awake, alert, and fully oriented, in no acute distress. HEAD: Normal with no signs of trauma. EYES: PERRL, extraocular movements intact, sclera anicteric, conjunctiva clear. ENT: Ears normal, nares patent, oropharynx clear without exudates, moist mucous membranes. NECK: Trachea midline, full range of motion, supple. LUNGS: Breath sounds equal, clear to auscultation bilaterally, no wheezes, no crackles, no accessory muscle use. HEART: Regular rate and rhythm, S1, S2 without murmur, rub or gallop. ABDOMEN: Soft, nontender, nondistended, intact surgical dressing EXTREMITIES: 2+ pulses, warm, well-perfused, no edema. NEUROLOGICAL: Cranial nerves II through XII grossly intact. Normal speech, gait not observed. PSYCH: Normal mood, normal affect. SKIN: Warm, dry, normal turgor, no rashes or lesions noted. LABS Laboratory Results - last 24 hr 07/28/17 07/28/17 06:45 06:45 WBC 8.4 D RBC 4.70 Hgb 14.1 D Hct 42.0 MCV 89.2 MCH 30.0 MCHC 33.6 RDW 13.5 Plt Count 209 MPV 9.3 Neutrophils % 69.3 D Lymphocytes % 25.1 D Monocytes % 5.3 Eosinophils % 0.1 D Basophils % 0.2 Sodium 141 Potassium 4.7 Chloride 103 Carbon Dioxide 31 Anion Gap 7 L BUN 8 D Creatinine 0.5 L D Creat Clearance w eGFR > 60 Random Glucose 99 Calcium 9.1 Total Bilirubin 0.6 AST 31 D ALT 73 D Alkaline Phosphatase 90 Total Protein 5.8 L Albumin 3.1 L HOSPITAL COURSE: Date of Admission:07/27/17 Date of Discharge: 07/28/17 Patient is a 42 year old female with muscular dystrophy and GERD. He was admitted on 07/27/2017 with abdominal and leila umbilicatl pain. He was taken to the OR shortly after noting to have acute appendicitis. GI: Acute appendicitis, s/p appendectomy on 07/27/2017 Received pre op antibiotics No fever, WBC stable, denies pain, vitals stable As per ID, and surgery, no further antibiotics needed Patient denies any pain, nausea or vomiting Tolerating meals, ambulating Regular diet, toleraring Cleared by surgery for discharge with follow in 7-10 days GERD: Protonix 40mg daily Disposition: Discharge home with surgery follow up with 7-10 days. full code. Minutes to complete discharge: 60 Discharge Summary Reason For Visit: APPENDICITIS Current Active Problems Acute appendicitis (Acute) Muscular dystrophy (Acute) Condition: Good - Instructions Diet, Activity, Other Instructions: Mr. Gerard: Please keep incision clean and dry. Postoperative instructions: You had an appendectomy on 07/27/[address] Ángel Martinez Activity: Resume your usual activities gradually, but no heavy exertion or lifting more than 10-15 pounds for 4-6 weeks. Remove dressings 48 hours after surgery, if they are not already off. You may shower daily starting then, just pat the incision areas dry. Eat lightly at first, but advance to your usual diet as tolerated. Pain: For pain, you may use and alternate Tylenol (acetaminophen) and/or ibuprofen every 6 hours each as needed. Do not take more than 4000mg of acetaminophen in a day. Take medications as prescribed or indicated on the labeling. Follow-up: Call Dr. Martinez's office to make your postop appointment within 7-10 days of discharge. Call the office if you have: * increasing pain not responsive to pain medication * fever of 101F or higher * vomiting * unusual or increasing bleeding or drainage from wounds * increasing redness or swelling at wound sites * inability to urinate You can call me with any questions that you may have. [facility] @ [facility] [phone] Referrals: Ángel Martinez MD [Staff Physician] - (Please follow up within 7 to 10 days for post op appointment.) Narendra Lima MD [Primary Care Provider] - Disposition: HOME - Home Medications Comprehensive Discharge Medication List: Ambulatory Orders Acetaminophen 650 mg PO PRN 07/27/17 Pantoprazole Sodium [Protonix] 40 mg PO DAILY 07/27/17 This patient is new to me today: Yes Date on this admission: 07/28/17 Emergency Visit: Yes Care time: The patient presented to the Emergency Department on the above date and was hospitalized for further evaluation of their emergent condition. Critical Care patient: No - Discharge Referral Referred to [facility] No
[2017-07-28 17:46] VITALS: BP 102/58; PULSE 73; TEMP 98
--- NOTE | 2017-07-29 13:36 | PATH ---
Surgical Pathology Report Patient Name: BRIGITTE MEDRANO [facility]. Rec. #: [id number] /Age/Gender: 1975 (Age: 42) / M Account: [id number] Location: EMERGENCY ROOM Taken: 07/27/2017 Received: 07/28/2017 Reported: 07/29/2017 Physicians: Ángel Martinez MD Specimen(s) Received APPENDIX Clinical History Acute appendicitis Final Diagnosis APPENDIX, LAPAROSCOPIC APPENDECTOMY: ACUTE AND CHRONIC APPENDICITIS AND PERIAPPENDICITIS. Electronically Signed Josephine Styles M.D. Gross Description Received in formalin, labeled "appendix," is a 8 cm. in length vermiform appendix with a stapled margin of resection and moderate attached fat. The serosa is ching-saravia with exudate at the tip. Sectioning reveals a dilated lumen containing red blood and fecal material. The wall of the appendix averages 0.1 cm. in thickness. Marine Equipment Design Engineer sections are submitted in one cassette. 07/28/201707/28/2017
== END 2017-07-28 19:26 | disposition home or self-care (01) ==
LOC: JER 05:50 → JASU-SURG 15:47 → SUATTDRO 15:47 → J7W 19:13 → JASU-SURG 07-28 19:26
PROVIDERS: ATTEND Nurse Practitioner Family
PROC: 0DTJ4ZZ Resection of Appendix, Percutaneous Endoscopic Approach (ICD-10-PCS; principal; 2017-07-27 14:00)
DX: K35.80 Unspecified acute appendicitis (principal)
CPT/HCPCS: 36415; 71045-TC; 74177-TC; 80053; 81003; 83605; 83690; 83735; 85025; 88304-TC; 93005; 93010; 94760; 99284-25

== ENCOUNTER 2018-12-22 14:03 | Emergency (ER) | payer OTHER ==
[2018-12-22 14:12] VITALS: TEMP 97.8; BMI 34.8
--- NOTE | 2018-12-22 14:13 | PDOC ---
Rapid Medical Evaluation Time Seen by Provider: 12/22/18 14:08 Medical Evaluation: Allergies Allergy/AdvReac Type Severity Reaction Status Date / Time Penicillins Allergy Rash Verified 07/27/17 06:25 12/22/18 14:08 The patient is a 43 y/o M who presents to the ER for periumbilical pain for three days. Denies fevers, chills, nausea, vomiting, diarrhea, and constipation PMHx: Muscular dystrophy PSHx: appendectomy Exam: generalized lower abdominal discomfort, distended, ambulatory Orders: labs, urine, IV Pt to proceed to the ER for further evaluation Discharge Disposition - Diagnosis Abdominal pain Qualifiers: Abdominal location: unspecified location Qualified Code(s): R10.9 - Unspecified abdominal pain - Referrals - Patient Instructions - Post Discharge Activity
[2018-12-22 15:04] LABS: BASO % 0.6 % (0-2.0); EOS % 3.3 % (0-4.5); HEMATOCRIT 48.6 % (35.4-49); HEMOGLOBIN 16.7 GM/dL (11.7-16.9); LYMPH % 45.8 % (8-40); MCH 31.2 pg (25.7-33.7); MCHC 34.3 g/dl (32.0-35.9); MEAN CELL VOLUME 91.2 fl (80-96); MEAN PLT VOLUME 9.1 fl (7.5-11.1); MONO % 5.9 % (3.8-10.2); NEUT % 44.4 % (42.8-82.8); PLATELET COUNT 148 K/MM3 (134-434); RBC 5.33 M/mm3 (4.00-5.60); RDW 13.6 % (11.9-15.9); URINE APPEARANCE CLEAR; URINE BILIRUBIN 1+ (NEGATIVE); URINE COLOR DK YELLOW; URINE GLUCOSE (UA) 1+ (NEGATIVE); URINE KETONE TRACE (NEGATIVE); URINE LEUK ESTERASE NEGATIVE (NEGATIVE); URINE NITRITE NEGATIVE (NEGATIVE); URINE PROTEIN NEGATIVE (NEGATIVE); WHITE BLOOD COUNT 5.8 K/mm3 (4.0-10.0)
[2018-12-22 15:21] LABS: INR 1.14 (0.83-1.09); PROTHROMBIN TIME (PATIENT) 13.5 SEC (9.7-13.0)
[2018-12-22] MEDS ORDERED: MAG HYDROX/AL HYDROX/SIMETH -MYLANTA- ORAL SUSPENSION PO ONE (15:35)
[2018-12-22] MEDS ORDERED: SODIUM CHLORIDE 0.9% 500 ML INFUS.BAG IV ONE (15:35)
[2018-12-22] MEDS ORDERED: FAMOTIDINE 20 MG/50 ML IVPB 20 MG/50 ML MG IVPB ONE ×2 (15:35→15:52)
--- NOTE | 2018-12-22 15:35 | PDOC ---
History of Present Illness <Catarina Funes - Last Filed: 12/22/18 18:07> - History of Present Illness Initial Comments: 12/22/18 15:29 The patient is a 43 year old male with a PMH of Muscular Dystrophy who presents to the ED c/o 3 day h/o periumbical pain. Pain is twisting, constant and worse with movement. Tolerating PO intake. Last BM was yesterday and was normal. No fevers/chills. No h/o similar pain. <Myrna George - Last Filed: 12/22/18 18:26> - General Chief Complaint: Pain, Acute Stated Complaint: PAIN LWR ABD Time Seen by Provider: 12/22/18 14:08 Past History <Catarina Funes - Last Filed: 12/22/18 18:07> - Past Medical History CVA: No COPD: No DVT: No Other medical history: MUSCULAR DYSTROPHY - Surgical History Abdominal Surgery: Yes Appendectomy: Yes - Immunization History Immunization Up to Date: Yes - Suicide/Smoking/Psychosocial Hx Smoking Status: No Smoking History: Never smoked Have you smoked in the past 12 months: No Number of Cigarettes Smoked Daily: 0 Information on smoking cessation initiated: No Hx Alcohol Use: No Drug/Substance Use Hx: No Substance Use Type: None Hx Substance Use Treatment: No <Myrna George - Last Filed: 12/22/18 18:26> - Past Medical History Allergies/Adverse Reactions: Allergies Allergy/AdvReac Type Severity Reaction Status Date / Time Penicillins Allergy Rash Verified 12/22/18 15:30 Home Medications: Ambulatory Orders Famotidine [Pepcid] 20 mg PO BID #20 tablet 12/22/18 Mag Hydrox/Al Hydrox/Simeth [Mylanta Suspension -] 30 ml PO Q6H PRN #1 bottle *Physical Exam - Vital Signs Last Vital Signs Temp Pulse Resp BP Pulse Ox 97.8 F 86 18 114/73 93 L 12/22/18 14:09 12/22/18 16:52 12/22/18 16:52 12/22/18 16:52 12/22/18 17:50 <Catarina Funes - Last Filed: 12/22/18 18:07> - Vital Signs Last Vital Signs Temp Pulse Resp BP Pulse Ox 97.8 F 104 H 16 135/72 94 L 12/22/18 14:09 12/22/18 14:09 12/22/18 14:09 12/22/18 14:09 12/22/18 14:09 <Myrna George - Last Filed: 12/22/18 18:26> ED Treatment Course - LABORATORY CBC & Chemistry Diagram: 12/22/18 14:52 12/22/18 14:52 - ADDITIONAL ORDERS Additional order review: Laboratory Results 12/22/18 12/22/18 12/22/18 14:52 14:52 14:52 PT with INR 13.50 H INR 1.14 H Sodium 144 Potassium 3.9 Chloride 112 H Carbon Dioxide 27 Anion Gap 5 L BUN 18.5 H Creatinine 0.7 Est GFR (CKD-EPI)AfAm 133.02 Est GFR (CKD-EPI)NonAf 114.77 Random Glucose 206 H Calcium 9.1 Total Bilirubin 0.6 AST 60 H ALT 61 Alkaline Phosphatase 128 H Total Protein 6.9 Albumin 3.5 Lipase 137 Urine Color Dk yellow Urine Appearance Clear Urine pH 5.0 D Ur Specific Guadalupe 1.033 Urine Protein Negative Urine Glucose (UA) 1+ H Urine Ketones Trace H Urine Blood Negative Urine Nitrite Negative Urine Bilirubin 1+ H Urine Urobilinogen 1.0 Ur Leukocyte Esterase Negative 12/22/18 14:52 RBC 5.33 MCV 91.2 MCHC 34.3 RDW 13.6 MPV 9.1 Neutrophils % 44.4 D Lymphocytes % 45.8 H D Monocytes % 5.9 Eosinophils % 3.3 D Basophils % 0.6 - Medications Given in the ED: ED Medications Discontinued Medications Generic Name Dose Route Start Last Admin Trade Name Bryceq PRN Reason Stop Dose Admin Al Hydroxide/Mg Hydroxide 30 ml 12/22/18 15:35 12/22/18 16:07 Mylanta Suspension - PO 12/22/18 15:36 30 ml ONCE ONE Administration Famotidine/Sodium Chloride 20 mg in 50 mls @ 100 mls/hr 12/22/18 15:35 16:07 Pepcid 20 Mg Premixed Ivpb - IVPB 12/22/18 16:04 100 mls/hr ONCE ONE Administration Sodium Chloride 1,000 ml 12/22/18 15:35 12/22/18 16:07 Normal Saline - IV 12/22/18 15:36 1,000 ml ONCE ONE Administration <FunesCatarina Tomasalisa - Last Filed: 12/22/18 18:07> - LABORATORY CBC & Chemistry Diagram: 12/22/18 14:52 12/22/18 14:52 - ADDITIONAL ORDERS Additional order review: Laboratory Results 12/22/18 12/22/18 14:52 14:52 PT with INR 13.50 H INR 1.14 H Urine Color Dk yellow Urine Appearance Clear Urine pH 5.0 D Ur Specific Guadalupe 1.033 Urine Protein Negative Urine Glucose (UA) 1+ H Urine Ketones Trace H Urine Blood Negative Urine Nitrite Negative Urine Bilirubin 1+ H Urine Urobilinogen 1.0 Ur Leukocyte Esterase Negative 12/22/18 14:52 RBC 5.33 MCV 91.2 MCHC 34.3 RDW 13.6 MPV 9.1 Neutrophils % 44.4 D Lymphocytes % 45.8 H D Monocytes % 5.9 Eosinophils % 3.3 D Basophils % 0.6 <Myrna George - Last Filed: 12/22/18 18:26> Medical Decision Making - Medical Decision Making 12/22/18 15:37 43 year old male w/ 3 day h/o abdominal pain. VS unremarkable. Mild abdominal TTP w/o abdominal TTP 12/22/18 17:30 CBC, CMP unremarkable Lipase normal <Myrna George - Last Filed: 12/22/18 18:26> *DC/Admit/Observation/Transfer - Discharge Dispostion Decision to Admit order: No <Catarina Funes - Last Filed: 12/22/18 18:07> - Discharge Dispostion Decision to Admit order: No <Myrna George - Last Filed: 12/22/18 18:26> Diagnosis at time of Disposition: Abdominal pain Qualifiers: Abdominal location: unspecified location Qualified Code(s): R10.9 - Unspecified abdominal pain - Discharge Dispostion Disposition: HOME Condition at time of disposition: Stable - Prescriptions Prescriptions: Famotidine [Pepcid] 20 mg PO BID #20 tablet Mag Hydrox/Al Hydrox/Simeth [Mylanta Suspension -] 30 ml PO Q6H PRN #1 bottle PRN Reason: Dyspepsia - Referrals Referrals: [facility] [place] [Provider Group] [facility] [Provider Group] Franki Rose DO [Staff Physician] - Jalil Daniel MD [Staff Physician] - Kt Harman MD [Staff Physician] - Narendra Lima MD [Non Staff, Medical] - - Patient Instructions Printed Discharge Instructions: DI for Abdominal Pain-Adult Additional Instructions: 1) Please follow-up with your primary care doctor in the next 1-2 days. Please call tomorrow for for any urgent issues. GI specialist for your abdominal pain 2) You were given a copy of the tests performed today. Please bring the results with you and review them with your primary care doctor. Your laboratory results were normal 3) If you have any worsening of symptoms or any other concerns please return to the ED immediately. Return if worsening symptoms including fevers, headache, vomiting, visual or hearing disturbances, abdominal pain, chest pain, shortness of breath, syncope, dehydration, inability to take things by mouth/vomiting, altered mental status, or worsening concerning symptoms. 4) Please continue taking your home medications as directed. your medications on discharge include Pepcid twice a day and maalox every 6 hours with meals for heart burn/dyspepsia . side effects may include upset stomach, abdominal pain, vomiting, or diarrhea. do not drink alcohol with your medications. Stay well hydrated and rest adequately. Make an appointment. If you cannot follow-up with your primary care doctor please return to the ED 1) Tramaine el seguimiento con mcfadden mdico de atencin primaria en los prximos 1 o 2 romero. Por favor llame maana para cualquier problema urgente. Especialista en GI para tu dolor abdominal. 2) Le dieron clarita copia de las pruebas realizadas hoy. Lleve los resultados con usted y revselos con mcfadden mdico de atencin primaria. Shelly resultados de laboratorio fueron normales. 3) Si tiene algn empeoramiento de los sntomas o alguna otra inquietud, vuelva a la ED de inmediato. Regrese si los sntomas empeoran, incluyendo fiebre, dolor de laura, vmitos, trastornos visuales o auditivos, dolor abdominal, dolor de pecho, falta de aliento, sncope, deshidratacin, incapacidad para louise cosas por la boca / vmitos, alteracin del estado mental o empeoramiento de los sntomas. 4) Por favor contine tomando shelly medicamentos caseros segn las indicaciones. shelly medicamentos al hattie incluyen Pepcid dos veces al da y maalox cada 6 horas con comidas para quemaduras cardacas / dispepsia. los efectos secundarios pueden incluir malestar estomacal, dolor abdominal, vmitos o diarrea. No tome alcohol con shelly medicamentos. Mantngase dick hidratado y descanse adecuadamente. Hacer clarita rona Si no puede hacer un seguimiento con mcfadden mdico de atencin primaria, vuelva a la ED - Post Discharge Activity Forms/Work/School Notes: Back to Work
[2018-12-22 15:37] LABS: ALBUMIN 3.5 g/dl (3.4-5.0); BILIRUBIN,TOTAL 0.6 mg/dL (0.2-1); BLOOD UREA NITROGEN 18.5 mg/dL (7-18); CALCIUM 9.1 mg/dL (8.5-10.1); CREATININE 0.7 mg/dL (0.55-1.3); POTASSIUM 3.9 mmol/L (3.5-5.1); TOT PROT 6.9 g/dl (6.4-8.2)
[2018-12-22] MEDS ORDERED: MAG HYDROX/AL HYDROX/SIMETH 30 ML UNIT-DOSE CUP ONE (15:52)
--- NOTE | 2018-12-22 16:04 | PDOC ---
Documentation entered by Zulma Agudelo SCRIBE, acting as scribe for Catarina Funes MD. Catarina Funes MD: This documentation has been prepared by the Magnus donahue Adrianna, SCRIBE, under my direction and personally reviewed by me in its entirety. I confirm that the documentation accurately reflects all work, treatment, procedures, and medical decision making performed by me. Attending Attestation - Resident Resident Name: Myrna George - ED Attending Attestation I have performed the following: I have examined & evaluated the patient, The case was reviewed & discussed with the resident, I agree w/resident's findings & plan - HPI HPI: 43 y/o male, with a past medical history of GERD, vertigo, and muscular dystrophy, s/p appendectomy who presents with abdominal pain x 3 days. Patient notes his pain is most prominent over the periumbilical region, is constant in nature, and is exacerbated with movement. His LBM was yesterday and normal. Patient has been able to eat comfortably at this time. Denies fever, chills, chest pain, SOB, palpitation, dizziness, weakness, N, V, D , bladder and bowel problems, leg swelling, No sick contacts or travel. No new changes in medications. No suspicious food intake Allergies: Penicillins Past Medical History: GERD Social history: Lives with family. No tobacco, ETOH or drug use. Surgical history: Adenoid removal, abdominal surgery, appendectomy Meds: as documented in EMR PMD: Dr. De La Fuente 12/22/18 16:24 12/22/18 17:30 - Physicial Exam PE: Agree with the resident's HPI and PE as documented in the electronic medical record. NAD, well appearing, EOMI, PERRL, MMM, nl conjunctiva, anicteric; neck supple. lungs clear, RRR, abdomen soft nontender, neg Chang's, no mcburney's. Back nontender. ROSARIO x4, no focal neuro deficits. No peripheral edema. normal color for ethnicity, [facility]. 12/22/18 15:40 12/22/18 17:28 - Medical Decision Making 12/22/18 16:03 See HPI for details. Prior notes reviewed, including admissions, discharges and consultations. Vital signs reviewed, no fever, mild tachy from pain. no systemic findings, well appearing/nontoxic DDx abdominal pain: Renal colic, biliary colic, metabolic/electrolyte derangements. GERD, PUD, esophageal spasm, pancreatitis, hepatitis, constipation , colitis, gastroenteritis, cholecystitis, UTI, hernia laboratory results and imaging reviewed, basic labs and lytes wnl, LFTs/lipase_ wnl UA neg ED course -interventions: GI cocktail, fluids and analgesia reassess feels improved, abdomen benign. no ruq pain doubt paolo. reassuring VS normalized, sleeping, NAD, SPO2 94% on RA, but no respiratory distress and clear lungs. no infectious sx, no cough/congestion/sob. sat up and rechecked SpO2 and appropriate without distress. prior records does reveal occasional borderline sats ~low 90s Pt to be discharged in stable condition. Patient made aware of clinical impression, treatment recommendations and disposition plan, return precautions discussed (including but not limited to new or persistent/worsening symptoms, pain, fevers, or signs of infection, chest pain, respiratory distress, inability to tolerate oral intake, dehydration, syncope, or neurologic changes) . Follow up with PMD and/or GI specialist as recommended, follow up information provided, take medications as instructed for duration of time. continue with supportive care, avoid triggers and precipitants. All questions answered to patient's satisfaction and expressed understanding and comfort with this. At the time of discharge, the patient is alert, clinically improved, tolerating po and verbalizes understanding of instructions, satisfied with the care received and felt comfortable with the plan. Patient does not suffer from an acute life- threatening medical condition at this time and is safe for outpatient follow- up. 12/22/18 18:27 12/22/18 18:28
[2018-12-22 16:53] VITALS: BP 114/73; PULSE 86
== END 2018-12-22 18:31 | disposition home or self-care (01) ==
LOC: JER 14:03
PROC: 3E033GC Introduction of Other Therapeutic Substance into Peripheral Vein, Percutaneous Approach (ICD-10-PCS; principal; 2018-12-22)
DX: R10.33 Periumbilical pain (principal)
CPT/HCPCS: 36415; 80053; 81003; 83690; 85025; 85610; 87086; 96365; 99283-25

== ENCOUNTER 2018-12-23 22:13 | Inpatient (IN) | payer OTHER ==
[2018-12-23 22:36] VITALS: BMI 34.8
--- NOTE | 2018-12-23 23:04 | PDOC ---
History of Present Illness - General Chief Complaint: Pain Stated Complaint: ABD PAIN Time Seen by Provider: 12/23/18 22:56 - History of Present Illness Initial Comments: The pt is a 43M w/ a history of muscular dystrophy, s/p appy (and per chart review GERD and Vertigo) who presents for evaluation of 4 days of periumbilical abdominal pain. The pain has been constant but waxing/waning, exacerbated with movement and touch, non-radiating, and not alleviated by the Pepcid and Maalox he got yesterday. He has not tried taking anything else for his pain. He denies fevers/chills, chest pain, trouble breathing, N/V/C/D, dysuria, heamturia, or blood in his stool. He denies previous episodes of similar pain 12/23/18 23:19 Past History - Past Medical History Allergies/Adverse Reactions: Allergies Allergy/AdvReac Type Severity Reaction Status Date / Time Penicillins Allergy Rash Verified 12/22/18 15:30 Home Medications: Ambulatory Orders Famotidine [Pepcid] 20 mg PO BID #20 tablet 12/22/18 Mag Hydrox/Al Hydrox/Simeth [Mylanta Suspension -] 30 ml PO Q6H PRN #1 bottle CVA: No COPD: No DVT: No Other medical history: muscular dystrophy - Surgical History Abdominal Surgery: Yes Appendectomy: Yes - Immunization History Immunization Up to Date: Yes - Suicide/Smoking/Psychosocial Hx Smoking Status: No Smoking History: Never smoked Have you smoked in the past 12 months: No Number of Cigarettes Smoked Daily: 0 Information on smoking cessation initiated: No Hx Alcohol Use: No Drug/Substance Use Hx: No Substance Use Type: None Hx Substance Use Treatment: No Review of Systems - Review of Systems Able to Perform ROS?: Yes Comments:: GENERAL/CONSTITUTIONAL: No fever or chills. No weakness HEAD, EYES, EARS, NOSE AND THROAT: No change in vision. No ear pain or discharge. No sore throat CARDIOVASCULAR: No chest pain or shortness of breath RESPIRATORY: Denies cough, hemoptysis GASTROINTESTINAL: No nausea, vomiting, diarrhea or constipation GENITOURINARY: No dysuria, frequency, or change in urination MUSCULOSKELETAL: +muscular dystrophy SKIN: No rash NEUROLOGIC: No headache, vertigo, loss of consciousness, or change in strength/ sensation ENDOCRINE: No increased thirst. No abnormal weight change HEMATOLOGIC/LYMPHATIC: No anemia, easy bleeding, or history of blood clots ALLERGIC/IMMUNOLOGIC: No hives or skin allergy 12/23/18 23:21 *Physical Exam - Vital Signs Last Vital Signs Temp Pulse Resp BP Pulse Ox 97.5 F L 49 L 16 133/59 L 100 12/23/18 22:29 12/23/18 22:29 12/23/18 22:29 12/23/18 22:29 12/23/18 22:29 - Physical Exam Comments: GENERAL: Awake, alert, and oriented to person/place/time, in no acute distress HEAD: No signs of trauma, normocephalic, atraumatic EYES: PERRLA, EOMI, sclera anicteric, conjunctiva clear ENT: Hearing grossly normal, nares patent, oropharynx clear without exudates. No uvular deviation. Moist mucosa LUNGS: No distress, speaks in full sentences, clear to auscultation bilaterally HEART: Regular rate and rhythm, normal S1 and S2, no murmurs appreciated, peripheral pulses normal and equal bilaterally ABDOMEN: Soft, protuberant, periumbilical TTP w/o rebound or guarding, normoactive bowel sounds. No guarding, no rebound EXTREMITIES: Moves all extremities independently, strength 5/5 throughout NEUROLOGICAL: Cranial nerves II through XII grossly intact. Normal speech, no focal sensorimotor deficits SKIN: Warm, Dry 12/23/18 23:22 ED Treatment Course - LABORATORY CBC & Chemistry Diagram: 12/23/18 23:30 12/23/18 23:30 Medical Decision Making - Medical Decision Making The pt is a 43M w/ a history of muscular dystrophy who presents for evaluation of 4 days of persistent periumbilical abdominal pain ED Course CMP, CBC, Lipase CT A&P w/ IV contrast to evaluate for infection, obstruction, hernia IVF and Tylenol for symptomatic relief 12/23/18 23:23 ECG w/ bigeminy; HR 82; QTc 460 12/23/18 23:52 No leukocytosis No anemia Lytes unremarkable Trop I neg LFTs unremarkable No BARBARA CT w/ evidence of portal vein thrombosis with extension into inferior mesenteric vein -Page placed to Dr. Joshi, awaiting call back -Will start heparin gtt pending PTT result Pt signed out to Sukhi Admitting Dispo: Admit 12/24/18 06:35 *DC/Admit/Observation/Transfer Diagnosis at time of Disposition: Portal vein thrombosis Abdominal pain Qualifiers: Abdominal location: periumbilical Qualified Code(s): R10.33 - Periumbilical pain - Discharge Dispostion Condition at time of disposition: Guarded Decision to Admit order: Yes - Referrals - Patient Instructions - Post Discharge Activity
[2018-12-23] MEDS ORDERED: LACTATED RINGERS SOLUTION 1000 ML INFUS.BAG IV ONE (23:14)
[2018-12-23] MEDS ORDERED: ACETAMINOPHEN 325 MG TABLET (FP) PO ONE (23:14)
[2018-12-23] MEDS ORDERED: ACETAMINOPHEN 325 MG TABLET (FP) ONE (23:46)
[2018-12-23 23:47] LABS: BASO % 0.9 % (0-2.0); EOS % 3.3 % (0-4.5); HEMATOCRIT 46.9 % (35.4-49); HEMOGLOBIN 15.8 GM/dL (11.7-16.9); LYMPH % 47.9 % (8-40); MCH 30.8 pg (25.7-33.7); MCHC 33.6 g/dl (32.0-35.9); MEAN CELL VOLUME 91.7 fl (80-96); MEAN PLT VOLUME 9.6 fl (7.5-11.1); NEUT % 40.9 % (42.8-82.8); PLATELET COUNT 141 K/MM3 (134-434); RBC 5.12 M/mm3 (4.00-5.60); RDW 13.4 % (11.9-15.9); WHITE BLOOD COUNT 6.9 K/mm3 (4.0-10.0)
--- NOTE | 2018-12-24 00:24 | PDOC ---
Documentation entered by Edie Epperson SCRIBE, acting as scribe for Amberly Duron DO. Amberly Duron DO: This documentation has been prepared by the Zhou donahue Xhesika, SCRIBE, under my direction and personally reviewed by me in its entirety. I confirm that the documentation accurately reflects all work, treatment, procedures, and medical decision making performed by me. Attending Attestation - Resident Resident Name: Redd Russell - ED Attending Attestation I have performed the following: I have examined & evaluated the patient, The case was reviewed & discussed with the resident, I agree w/resident's findings & plan, Exceptions are as noted - HPI HPI: 12/24/18 00:06 The patient is a 43 year old male, with a significant PMH of GERD, vertigo, and muscular dystrophy (s/p appendectomy) who presents to the emergency department with 4 days of abdominal pain. Patient notes his pain is most prominent over the periumbilical region, is consistent, and is exacerbated with movement and touch. The patient notes he had a normal bowel movement this morning. The patient states he was seen here in the ED yesterday, labs were normal and he was given Pepcid and Maalox. 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 The patient denies chest pain, shortness of breath, headache and dizziness. Denies fever, chills, nausea, vomit, diarrhea and constipation. Denies dysuria, frequency, urgency and hematuria. Allergies: NKA Past surgical history: Appendectomy Social history: No reported PA: Kt De La Fuente - Physicial Exam PE: 12/24/18 00:07 GENERAL: Awake, alert, and fully oriented, in no acute distress HEAD: No signs of trauma EYES: PERRLA, EOMI, sclera anicteric, conjunctiva clear ENT: Auricles normal inspection, hearing grossly normal, nares patent, oropharynx clear without exudates. Moist mucosa HANDS: (+) muscular dystrophy in hands. NECK: Normal ROM, supple, no lymphadenopathy, JVD, or masses LUNGS: Breath sounds equal, clear to auscultation bilaterally. No wheezes, and no crackles HEART: Regular rate and rhythm, normal S1 and S2, no murmurs, rubs or gallops ABDOMEN: (+) mild periumbilical tenderness. Soft, nontender, normoactive bowel sounds. No guarding, no rebound. No masses. No CVA tenderness. EXTREMITIES: Normal range of motion, no edema. No clubbing or cyanosis. No cords , erythema, or tenderness NEUROLOGICAL: Cranial nerves II through XII grossly intact. Normal speech, normal gait SKIN: Warm, Dry, normal turgor, no rashes or lesions noted. - Medical Decision Making 12/24/18 00:19 I, Dr. Amberly Duron, DO, attest that this document has been prepared under my direction and personally reviewed by me in its entirety. I further attest, that it accurately reflects all work, treatment, procedures and medical decision -making performed by me. 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 Joshi from vascular surgery 12/24/18 02:[address] imaging with the patient will start heparin gtt 12/24/18 02:42 pt will need admission for iv heparin and further eval of his portal vein thrombosis Heart Score/ECG Review - ECG Intrepretation Comment:: 12/24/18 00:23 sinus at 82, bigeminy, q waves inferior leads which are age indeterminate, no acute st/t wave findings
[2018-12-24 00:34] LABS: URINE APPEARANCE CLEAR; URINE BILIRUBIN NEGATIVE (NEGATIVE); URINE COLOR DK YELLOW; URINE GLUCOSE (UA) NEGATIVE (NEGATIVE); URINE KETONE TRACE (NEGATIVE); URINE LEUK ESTERASE NEGATIVE (NEGATIVE); URINE NITRITE NEGATIVE (NEGATIVE); URINE PROTEIN NEGATIVE (NEGATIVE)
[2018-12-24 01:05] LABS: ALBUMIN 3.4 g/dl (3.4-5.0); BILIRUBIN,TOTAL 0.5 mg/dL (0.2-1); BLOOD UREA NITROGEN 13.1 mg/dL (7-18); CALCIUM 8.5 mg/dL (8.5-10.1); CREATININE 0.6 mg/dL (0.55-1.3); MAGNESIUM 2.5 mg/dL (1.8-2.4); POTASSIUM 4.2 mmol/L (3.5-5.1); TOT PROT 6.7 g/dl (6.4-8.2)
[2018-12-24] MEDS ORDERED: HEPARIN NA (PORCINE) 5,000 UNITS/ML 1ML VIAL IVPUSH PRN ×2 (02:21)
[2018-12-24 03:16] LABS: INR 1.16 (0.83-1.09); PROTHROMBIN TIME (PATIENT) 13.7 SEC (9.7-13.0)
[2018-12-24] MEDS ORDERED: LACTATED RINGERS SOLUTION 1000 ML INFUS.BAG IV ONE (03:18)
[2018-12-24 03:19] LABS: ACTIVATED PTT 36.9 SECONDS (25.2-36.5)
[2018-12-24] MEDS ORDERED: HEPARIN INFUSION - 25,000 UNITS/500 ML INFUS.BAG IVPB ONE (03:28)
--- NOTE | 2018-12-24 03:44 | PN ---
Teaching Attending Note Name of Resident: Gayla Archer ATTENDING PHYSICIAN STATEMENT I saw and evaluated the patient. I reviewed the resident's note and discussed the case with the resident. I agree with the resident's findings and plan as documented. SUBJECTIVE: Patient is a 43 year old man with a PMH of Penicillin allergy, GERD, Vertigo, Muscular dystrophy and Appendectomy (on 07/27/17)) who presents to the ER with abdominal pain for four days. Patient notes his pain is most prominent over the periumbilical region, is consistent, and is exacerbated with movement and touch. The patient notes he had a normal bowel movement this morning. The patient states he was seen here in the ER yesterday - labs were normal and he was given Pepcid and Maalox. 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 Patient is unemployed and on disability. The patient denies chest pain, shortness of breath, headache and dizziness. Denies fever, chills, nausea, vomit , diarrhea and constipation. Denies dysuria, frequency, urgency and hematuria. OBJECTIVE: Alert Vital Signs Period Temp Pulse Resp BP Sys/Maddox Pulse Ox Last 24 Hr 97.5 F-98.1 F 49-67 16 83-133/51-59 98-100 HEENT: No Jaundice, eye redness or discharge, PERRLA, EOMI. Normocephalic, atraumatic. External ears are normal and hearing is grossly intact. No nasal discharge. Neck: Supple, nontender. No palpable adenopathy or thyromegaly. No JVD Chest: Good effort. Clear to auscultation and percussion. Heart: Regular. No S3, rub or murmur Abdomen: Not distended, soft, periumblical tenderness and no HSM. No rebound or guarding. Normal bowel sounds. Ext: Peripheral pulses intact. No leg edema. Skin: Warm and dry. No petechiae, rash or ecchymosis. Neuro: Alert. Oriented x3. CN 2-12 grossly intact. Sensation grossly intact in all four extremities and DTR are symmetric. Psych: Appropriate mood and affect. Good insight. Current Medications Generic Name Dose Route Start Last Admin Trade Name Freq PRN Reason Stop Dose Admin Heparin Sodium (Porcine) 1,000 unit 12/24/18 02:21 Heparin - IVPUSH PRN PRN Heparin Heparin Sodium (Porcine) 5,000 unit 12/24/18 02:21 Heparin - IVPUSH PRN PRN Heparin Heparin Sodium (Porcine) 25, 500 mls @ 20 mls/hr 12/24/18 02:30 12/24/18 03: 49 000 unit/ Sodium Chloride IV 1,000 unit/hr TITR HERNÁN 20 mls/hr Administration Protocol 1,000 UNIT/HR Home Medications Medication Instructions Recorded Famotidine [Pepcid] 20 mg PO BID #20 tablet 12/22/18 Mag Hydrox/Al Hydrox/Simeth 30 ml PO Q6H PRN #1 bottle 12/22/18 [Mylanta Suspension -] Abnormal Lab Results 12/23/18 12/23/18 12/24/18 23:30 23:30 00:18 Neutrophils % 40.9 L Lymphocytes % 47.9 H PT with INR INR PTT (Actin FS) Chloride 111 H Anion Gap 3 L Random Glucose 129 H Magnesium 2.5 H AST 70 H Alkaline Phosphatase 139 H Urine Ketones Trace H 12/24/18 02:00 Neutrophils % Lymphocytes % PT with INR 13.70 H INR 1.16 H PTT (Actin FS) 36.9 H Chloride Anion Gap Random Glucose Magnesium AST Alkaline Phosphatase Urine Ketones ASSESSMENT AND PLAN: 1. Portal vein thrombosis - CT scan of the abdomen/pelvis with IV contrast shows portal vein thrombosis. Patient started on IV heparin drip and vascular surgery being consulted - discuss whether thrombectomy is an option. He does not have any obvious risk factor for VTE. Will need workup to search for risk factor for VTE. Check HbA1c. EKG shows NSR with PVCs; LVH and no significant ST- T wave changes. 2. Obesity Counseled on the risks associated with obesity. Will provide patient all the necessary assistance, counseling and positive reinforcement to facilitate weight loss. Consult suture polisher. 3. DVT prophylaxis - On IV Heparin drip for portal vein thrombosis 4. Advance directives - Full code
[2018-12-24] MEDS: HEPARIN - 25,000 UNIT in SODIUM CHLORIDE 495 ML IV SCH (03:49)
--- NOTE | 2018-12-24 06:23 | HP ---
CHIEF COMPLAINT:Abdominal Pain PCP: Sudhakar HISTORY OF PRESENT ILLNESS: Patient is tanzanian speaking, translators used to obtain H&P- [id number]. 43 year old male with PMH of Muscular Dystrophy, GERD, vertigo, who presents with 4 days of abdominal pain in the periumbilical region which is exacerbated by movement and touch. The pain has waxed and waned over the previous 4 days, with it increasing in intensity 1 day ago. Patient came to ED and was discharged with famotidine and maalox. Patient did not take medicines while at home and felt the pain increase in intensity in the AM so reported back to ED. Patient denies any sick contacts, no change in diet, no change in appetite, no nausea, vomiting, diarrhea. Last bowel movement was last night with no change in quality. Patient denies any hemoptysis, or blood in stool, there is no family history of blood clots or bleeding issues, and patient has no personal history of blood clotting issues. ER course was notable for EKG that was done that showed new PVCs in bigmeny pattern that was not present on previous EKG. CT Abdomen/Pelvis was done with contrast that showed blood clot in the main portal vein, right portal vein, superior mesenteric vein and multiple mesenteric tributary veins. Recent Travel:none PAST MEDICAL HISTORY: GERD, NAFLD, Vertigo, Muscular dystrophy PAST SURGICAL HISTORY: Appendectomy, Tonsillectomy, Tympanostomy placement b/l, Social History: Smoking: Denies Alcohol: Denies Drugs: Denies Family History: Allergies Penicillins Allergy (Verified 12/22/18 15:30) Rash HOME MEDICATIONS: Home Medications Medication Instructions Recorded Famotidine [Pepcid] 20 mg PO BID #20 tablet 12/22/18 Mag Hydrox/Al Hydrox/Simeth 30 ml PO Q6H PRN #1 bottle 12/22/18 [Mylanta Suspension -] REVIEW OF SYSTEMS CONSTITUTIONAL: No fever, chills, diaphoresis, generalized weakness, malaise, loss of appetite, weight change CARDIOVASCULAR: No chest pain or palpitations RESPIRATORY: No cough, shortness of breath, dyspnea with exertion, GENITOURINARY: No dysuria, frequency, urgency, hesitancy, hematuria, HEMATOLOGIC/IMMUNOLOGIC: No easy bleeding, easy bruising NEUROLOGIC: No Headache PHYSICAL EXAMINATION Vital Signs - 24 hr 12/23/18 12/24/18 22:29 03:12 Temperature 97.5 F L 98.1 F Pulse Rate 49 L Pulse Rate [ 67 Left Radial] Respiratory 16 Rate Blood Pressure 133/59 L Blood Pressure 83/51 L [Left Arm] O2 Sat by Pulse 100 98 Oximetry (%) GENERAL: Awake, alert, and fully oriented and resting comfortably. Obese body habitus HEAD: Normal with no signs of trauma. EYES: Extraocular movements intact, sclera anicteric, conjunctiva clear EARS, NOSE, THROAT: Ears normal on external examination. Moist mucous membranes. NECK: Normal range of motion, supple without lymphadenopathy LUNGS: Breath sounds equal, clear to auscultation bilaterally. No wheezes, and no crackles. HEART: Regular rate and rhythm, normal S1 and S2 without murmur, rub or gallop. ABDOMEN: Initially soft and nontender. However a minute later patient reported pain returning, and then was tender to palpation in the upper quadrants and periumbilical region. Normoactive bowel sounds, no guarding, no rebound, no masses. No hepatomegaly or splenomegaly. UPPER EXTREMITIES: 2+ pulses, warm, well-perfused. No cyanosis. No clubbing. No peripheral edema. LOWER EXTREMITIES: 2+ pulses, warm, well-perfused. No calf tenderness. No peripheral edema. NEUROLOGICAL: Cranial nerves II-XII intact. PSYCHIATRIC: Cooperative. Good eye contact. Appropriate mood and affect. SKIN: Warm, dry, normal turgor, no rashes or lesions noted, normal capillary refill. Laboratory Results - last 24 hr 12/23/18 12/23/18 12/24/18 23:30 23:30 00:18 WBC 6.9 RBC 5.12 Hgb 15.8 Hct 46.9 MCV 91.7 MCH 30.8 MCHC 33.6 RDW 13.4 Plt Count 141 MPV 9.6 Absolute Neuts (auto) 2.8 Neutrophils % 40.9 L Lymphocytes % 47.9 H Monocytes % 7.0 Eosinophils % 3.3 Basophils % 0.9 Nucleated RBC % 0 PT with INR INR PTT (Actin FS) Sodium 145 Potassium 4.2 Chloride 111 H Carbon Dioxide 31 Anion Gap 3 L BUN 13.1 Creatinine 0.6 Est GFR (CKD-EPI)AfAm 141.72 Est GFR (CKD-EPI)NonAf 122.28 Random Glucose 129 H Calcium 8.5 Magnesium 2.5 H Total Bilirubin 0.5 AST 70 H ALT 59 Alkaline Phosphatase 139 H Troponin I 0.02 Total Protein 6.7 Albumin 3.4 Lipase 170 Urine Color Dk yellow Urine Appearance Clear Urine pH 5.0 Ur Specific [place] 1.026 Urine Protein Negative Urine Glucose (UA) Negative Urine Ketones Trace H Urine Blood Negative Urine Nitrite Negative Urine Bilirubin Negative Urine Urobilinogen 1.0 Ur Leukocyte Esterase Negative Blood Type Antibody Screen 12/24/18 12/24/18 02:00 02:00 WBC RBC Hgb Hct MCV MCH MCHC RDW Plt Count MPV Absolute Neuts (auto) Neutrophils % Lymphocytes % Monocytes % Eosinophils % Basophils % Nucleated RBC % PT with INR 13.70 H INR 1.16 H PTT (Actin FS) 36.9 H Sodium Potassium Chloride Carbon Dioxide Anion Gap BUN Creatinine Est GFR (CKD-EPI)AfAm Est GFR (CKD-EPI)NonAf Random Glucose Calcium Magnesium Total Bilirubin AST ALT Alkaline Phosphatase Troponin I Total Protein Albumin Lipase Urine Color Urine Appearance Urine pH Ur Specific [place] Urine Protein Urine Glucose (UA) Urine Ketones Urine Blood Urine Nitrite Urine Bilirubin Urine Urobilinogen Ur Leukocyte Esterase Blood Type A POSITIVE Antibody Screen Negative ASSESSMENT/PLAN: 43 year old male with PMH of muscular dystrophy, GERD, and vertigo who presents today with abdominal pain which is most likely due to portal vein thrombosis as shown in CT scan. 1) Portal vein thrombosis Heparin Drip Vascular Surgery consulted Heme-Onc consulted for workup of hypercoagulable state. 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 F: No fluids at the moment E: Monitor BMP N: Regular Diet Dispo: Admitted to Telemetry. Visit type - Emergency Visit Emergency Visit: Yes ED Registration Date: 12/24/18 Care time: The patient presented to the Emergency Department on the above date and was hospitalized for further evaluation of their emergent condition. - New Patient This patient is new to me today: Yes Date on this admission: 12/24/18 - Critical Care Critical Care patient: No
--- NOTE | 2018-12-24 07:36 | PN ---
Physical Exam: SUBJECTIVE: Patient seen and examined. Pt with no chest pain or SOB, Periumbilical pain improved, pt having breakfast. Started on heparin drip in ED , pending vascular evaluation. OBJECTIVE: Vital Signs Period Temp Pulse Resp BP Sys/Maddox Pulse Ox Last 24 Hr 97.5 F-98.1 F 49-67 16-18 83-133/42-59 98-100 Vital Signs Temp 98.1 F 12/24/18 10:00 Pulse 81 12/24/18 10:00 Resp 16 12/24/18 10:00 BP 115/71 12/24/18 10:00 Pulse Ox 95 12/24/18 10:00 Intake & Output 12/23/18 12/23/18 12/24/18 11:59 23:59 11:59 Intake Total 370 Output Total 300 Balance 70 Weight 97.976 kg 97.976 kg Intake: Oral 370 Output: Urine 300 Void 300 Other: Voiding Method Urinal # Unmeasured Voids Void 1 Bowel Movement No Height 1.68 m 1.68 m Body Mass Index (BMI) 34.8 34.8 Weight Measurement Method Standing Scale GENERAL: The patient is awake, alert, and fully oriented, in no acute distress. EYES: PERRL, extraocular movements intact ENT: moist mucous membranes. NECK: supple. LUNGS: Breath sounds equal, clear to auscultation bilaterally, no wheezes, no crackles HEART: Regular rate and rhythm, S1, S2 ABDOMEN: Soft, mild leila-umbilical tenderness, nondistended, normoactive bowel sounds, no guarding EXTREMITIES: 2+ pulses, warm, well-perfused, no edema. NEUROLOGICAL: Cranial nerves II through XII grossly intact. Normal speech, gait not observed. Laboratory Results - last 24 hr 12/23/18 12/23/18 12/24/18 23:30 23:30 00:18 WBC 6.9 RBC 5.12 Hgb 15.8 Hct 46.9 MCV 91.7 MCH 30.8 MCHC 33.6 RDW 13.4 Plt Count 141 MPV 9.6 Absolute Neuts (auto) 2.8 Neutrophils % 40.9 L Lymphocytes % 47.9 H Monocytes % 7.0 Eosinophils % 3.3 Basophils % 0.9 Nucleated RBC % 0 PT with INR INR PTT (Actin FS) Sodium 145 Potassium 4.2 Chloride 111 H Carbon Dioxide 31 Anion Gap 3 L BUN 13.1 Creatinine 0.6 Est GFR (CKD-EPI)AfAm 141.72 Est GFR (CKD-EPI)NonAf 122.28 Random Glucose 129 H Hemoglobin A1c % Calcium 8.5 Magnesium 2.5 H Total Bilirubin 0.5 AST 70 H ALT 59 Alkaline Phosphatase 139 H Troponin I 0.02 Total Protein 6.7 Albumin 3.4 Lipase 170 Urine Color Dk yellow Urine Appearance Clear Urine pH 5.0 Ur Specific [place] 1.026 Urine Protein Negative Urine Glucose (UA) Negative Urine Ketones Trace H Urine Blood Negative Urine Nitrite Negative Urine Bilirubin Negative Urine Urobilinogen 1.0 Ur Leukocyte Esterase Negative Blood Type Antibody Screen 12/24/18 12/24/18 12/24/18 00:24 02:00 02:00 WBC RBC Hgb Hct MCV MCH MCHC RDW Plt Count MPV Absolute Neuts (auto) Neutrophils % Lymphocytes % Monocytes % Eosinophils % Basophils % Nucleated RBC % PT with INR 13.70 H INR 1.16 H PTT (Actin FS) 36.9 H Sodium Potassium Chloride Carbon Dioxide Anion Gap BUN Creatinine Est GFR (CKD-EPI)AfAm Est GFR (CKD-EPI)NonAf Random Glucose Hemoglobin A1c % 6.2 Calcium Magnesium Total Bilirubin AST ALT Alkaline Phosphatase Troponin I Total Protein Albumin Lipase Urine Color Urine Appearance Urine pH Ur Specific [place] Urine Protein Urine Glucose (UA) Urine Ketones Urine Blood Urine Nitrite Urine Bilirubin Urine Urobilinogen Ur Leukocyte Esterase Blood Type A POSITIVE Antibody Screen Negative Active Medications Generic Name Dose Route Start Last Admin Trade Name Freq PRN Reason Stop Dose Admin Acetaminophen 650 mg 12/24/18 06:47 Tylenol - PO Q6H PRN Fever Heparin Sodium (Porcine) 1,000 unit 12/24/18 02:21 Heparin - IVPUSH PRN PRN Heparin Heparin Sodium (Porcine) 5,000 unit 12/24/18 02:21 Heparin - IVPUSH PRN PRN Heparin Heparin Sodium (Porcine) 25, 500 mls @ 20 mls/hr 12/24/18 02:30 12/24/18 03: 49 000 unit/ Sodium Chloride IV 1,000 unit/hr TITR HERNÁN 20 mls/hr Administration Protocol 1,000 UNIT/HR Ambulatory Orders Famotidine [Pepcid] 20 mg PO BID #20 tablet 12/22/18 Mag Hydrox/Al Hydrox/Simeth [Mylanta Suspension -] 30 ml PO Q6H PRN #1 bottle Current Medications Acetaminophen (Tylenol -) 650 mg PO Q6H PRN PRN Reason: Fever Last Admin: 12/24/18 11:35 Dose: 650 mg Heparin Sodium (Porcine) (Heparin -) 1,000 unit IVPUSH PRN PRN PRN Reason: Heparin Heparin Sodium (Porcine) (Heparin -) 5,000 unit IVPUSH PRN PRN PRN Reason: Heparin Heparin Sodium (Porcine) 25, (000 unit/ Sodium Chloride) 500 mls @ 20 mls/hr IV TITR HERNÁN; Protocol Last Titration: 12/24/18 09:22 Dose: 1,150 unit/hr, 23 mls/hr Morphine Sulfate (Morphine Sulfate) 2 mg IVPUSH Q3H PRN PRN Reason: PAIN LEVEL 7 - 10 Last Admin: 12/24/18 12:37 Dose: 2 mg CTAP 09/23/18: Bibasilar dependent atelectasis without evidence of PNA. Bld clots in main portal vein and R portal v, superior mesenteric v and multiple mesenteric tributaries. ASSESSMENT/PLAN: 43 year old male with PMH of muscular dystrophy, GERD, and vertigo who presents today with abdominal pain which is most likely due to portal vein thrombosis as shown in CT scan. #Portal vein thrombosis Extensive, main portal vein and R portal v, superior mesenteric v and multiple mesenteric tributaries. per Dr Joshi, no intestinal edema, appears subacute/chronic Heparin Drip- goal PTT 60-80 Heme-Onc consulted for workup of hypercoagulable state. 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 - New Patient This patient is new to me today: Yes Date on this admission: 12/24/18 - Critical Care Critical Care patient: No - Discharge Referral Referred to [facility] Med [facility] No
[2018-12-24 08:09] LABS: HEMATOCRIT 44.1 % (35.4-49); MCH 30.9 pg (25.7-33.7); MEAN CELL VOLUME 90.8 fl (80-96); RBC 4.86 M/mm3 (4.00-5.60); RDW 13.5 % (11.9-15.9); WHITE BLOOD COUNT 6.8 K/mm3 (4.0-10.0)
[2018-12-24 08:38] LABS: ALBUMIN 3.2 g/dl (3.4-5.0); BILIRUBIN,TOTAL 0.8 mg/dL (0.2-1); BLOOD UREA NITROGEN 7.8 mg/dL (7-18); CALCIUM 8.5 mg/dL (8.5-10.1); CREATININE 0.4 mg/dL (0.55-1.3); MAGNESIUM 2.3 mg/dL (1.8-2.4); PHOSPHOROUS 2.6 mg/dL (2.5-4.9); POTASSIUM 3.7 mmol/L (3.5-5.1); TOT PROT 6.3 g/dl (6.4-8.2)
[2018-12-24 08:52] LABS: PLATELET COUNT 118 K/MM3 (134-434)
--- NOTE | 2018-12-24 10:13 | CONSULT ---
Consultation: CONSULT REQUEST: HEME/ONC HISTORY OF PRESENT ILLNESS: Patient is a 43 yo M with a PMHx of muscular dysrophy, GERD, vertigo, presents with abdominal pain that started 4 days ago. Patient says the pain is intermittent, waxing and waning in nature, and is a 10/10 in intensity at its worse. He said pain is worse with movement and touch. The pain is not related to food intake. He says he came to the ER [facility] for the same reason, was discharged and was told to take pepcid. The pain persisted and prompted him to come back yesterday. Patient denies SOB, sick contacts, nausea, vomiting, diarrhea, hemoptysis, blood in stool, dizziness, chest pain, leg swelling, palpitations, urinary changes. CTAP revealed clot in the pain portal vein, R portal vein, sup mescenteric vein , and multiple mescenteric tributory veins. Heparin drip was started in the ED. Surgical Hx: appendectomy 2018, tonsillectomy, Tympanostomy placement b/l Family Hx: grandfather with "bone cancer" in his 80's. 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 Endoscopy 2 years ago revealing esophagitis REVIEW OF SYSTEMS: CONSTITUTIONAL: Absent: fever, chills, diaphoresis, generalized weakness, malaise, loss of appetite, weight change HEENT: Absent: difficulty swallowing, mouth swelling, ear pain, eye pain, visual changes CARDIOVASCULAR: Absent: chest pain, syncope, palpitations, irregular heart rate, lightheadedness , peripheral edema RESPIRATORY: Absent: cough, shortness of breath, dyspnea with exertion, orthopnea, wheezing, stridor, hemoptysis GASTROINTESTINAL: abd pain Absent: abdominal distension, nausea, vomiting, diarrhea, constipation, melena, hematochezia GENITOURINARY: Absent: dysuria, frequency, urgency, hesitancy, hematuria, flank pain, genital pain MUSCULOSKELETAL: Absent: myalgia, arthralgia, joint swelling, back pain, neck pain Absent: easy bleeding, easy bruising, lymphadenopathy, frequent infections NEUROLOGIC: Absent: headache, focal weakness or paresthesias, dizziness, unsteady gait, seizure, mental status changes, bladder or bowel incontinence PHYSICAL EXAMINATION Vital Signs - 24 hr 07/09/0812/24/18 12/24/18 22:29 03:12 04:28 Temperature 97.5 F L 98.1 F Pulse Rate 49 L Pulse Rate [ 67 Left Radial] Respiratory 16 16 Rate Blood Pressure 133/59 L Blood Pressure 83/51 L [Left Arm] O2 Sat by Pulse 100 98 94 L Oximetry (%) 12/24/18 12/24/18 06:00 08:04 Temperature 97.9 F 98.1 F Pulse Rate 63 64 Pulse Rate [ Left Radial] Respiratory 18 16 Rate Blood Pressure 93/42 L 116/71 Blood Pressure [Left Arm] O2 Sat by Pulse Oximetry (%) GENERAL: in NAD, watching tv in bed. HEAD: Normal with no signs of trauma. EYES: Pupils equal, round and reactive to light, extraocular movements intact, sclera anicteric EARS, NOSE, THROAT: oropharynx clear without exudates, no exudates NECK: supple without lymphadenopathy, JVD, or masses. LUNGS: CTAB, No wheezes, and no crackles HEART: RRR, normal S1 and S2 without murmur, rub or gallop. ABDOMEN: obese, soft, periumbilical tenderness to palpation. negative guerrero signs. no organomegaly UPPER EXTREMITIES: 2+ pulses, atrophic hands b/l, No peripheral edema. LOWER EXTREMITIES: 2+ pulses, No peripheral edema. No calf tenderness NEUROLOGICAL: Cranial nerves II-XII intact. Normal speech. TESTES: uncircumsized, non tender, no palpable masses, no rash, no drainage. Laboratory Results - last 24 hr 12/23/18 12/23/18 12/24/18 23:30 23:30 00:18 WBC 6.9 RBC 5.12 Hgb 15.8 Hct 46.9 MCV 91.7 MCH 30.8 MCHC 33.6 RDW 13.4 Plt Count 141 MPV 9.6 Absolute Neuts (auto) 2.8 Neutrophils % 40.9 L Lymphocytes % 47.9 H Monocytes % 7.0 Eosinophils % 3.3 Basophils % 0.9 Nucleated RBC % 0 PT with INR INR PTT (Actin FS) Sodium 145 Potassium 4.2 Chloride 111 H Carbon Dioxide 31 Anion Gap 3 L BUN 13.1 Creatinine 0.6 Est GFR (CKD-EPI)AfAm 141.72 Est GFR (CKD-EPI)NonAf 122.28 Random Glucose 129 H Hemoglobin A1c % Calcium 8.5 Phosphorus Magnesium 2.5 H Total Bilirubin 0.5 AST 70 H ALT 59 Alkaline Phosphatase 139 H Troponin I 0.02 Total Protein 6.7 Albumin 3.4 Lipase 170 Urine Color Dk yellow Urine Appearance Clear Urine pH 5.0 Ur Specific [place] 1.026 Urine Protein Negative Urine Glucose (UA) Negative Urine Ketones Trace H Urine Blood Negative Urine Nitrite Negative Urine Bilirubin Negative Urine Urobilinogen 1.0 Ur Leukocyte Esterase Negative Blood Type Antibody Screen 12/24/18 12/24/18 12/24/18 00:24 02:00 02:00 WBC RBC Hgb Hct MCV MCH MCHC RDW Plt Count MPV Absolute Neuts (auto) Neutrophils % Lymphocytes % Monocytes % Eosinophils % Basophils % Nucleated RBC % PT with INR 13.70 H INR 1.16 H PTT (Actin FS) 36.9 H Sodium Potassium Chloride Carbon Dioxide Anion Gap BUN Creatinine Est GFR (CKD-EPI)AfAm Est GFR (CKD-EPI)NonAf Random Glucose Hemoglobin A1c % 6.2 Calcium Phosphorus Magnesium Total Bilirubin AST ALT Alkaline Phosphatase Troponin I Total Protein Albumin Lipase Urine Color Urine Appearance Urine pH Ur Specific [place] Urine Protein Urine Glucose (UA) Urine Ketones Urine Blood Urine Nitrite Urine Bilirubin Urine Urobilinogen Ur Leukocyte Esterase Blood Type A POSITIVE Antibody Screen Negative 12/24/18 12/24/18 12/24/18 07:46 07:46 07:46 WBC 6.8 RBC 4.86 Hgb 15.0 Hct 44.1 MCV 90.8 MCH 30.9 MCHC 34.0 RDW 13.5 Plt Count 118 L MPV 9.0 Absolute Neuts (auto) Neutrophils % Lymphocytes % Monocytes % Eosinophils % Basophils % Nucleated RBC % PT with INR INR PTT (Actin FS) Sodium 141 Potassium 3.7 Chloride 109 H Carbon Dioxide 28 Anion Gap 5 L BUN 7.8 Creatinine 0.4 L Est GFR (CKD-EPI)AfAm 167.42 Est GFR (CKD-EPI)NonAf 144.46 Random Glucose 97 Hemoglobin A1c % Calcium 8.5 Phosphorus 2.6 Magnesium 2.3 Total Bilirubin 0.8 AST 55 H ALT 56 Alkaline Phosphatase 124 H Troponin I Total Protein 6.3 L Albumin 3.2 L Lipase Urine Color Urine Appearance Urine pH Ur Specific [place] Urine Protein Urine Glucose (UA) Urine Ketones Urine Blood Urine Nitrite Urine Bilirubin Urine Urobilinogen Ur Leukocyte Esterase Blood Type A POSITIVE Antibody Screen 12/24/18 07:46 WBC RBC Hgb Hct MCV MCH MCHC RDW Plt Count MPV Absolute Neuts (auto) Neutrophils % Lymphocytes % Monocytes % Eosinophils % Basophils % Nucleated RBC % PT with INR INR PTT (Actin FS) 37.6 H Sodium Potassium Chloride Carbon Dioxide Anion Gap BUN Creatinine Est GFR (CKD-EPI)AfAm Est GFR (CKD-EPI)NonAf Random Glucose Hemoglobin A1c % Calcium Phosphorus Magnesium Total Bilirubin AST ALT Alkaline Phosphatase Troponin I Total Protein Albumin Lipase Urine Color Urine Appearance Urine pH Ur Specific [place] Urine Protein Urine Glucose (UA) Urine Ketones Urine Blood Urine Nitrite Urine Bilirubin Urine Urobilinogen Ur Leukocyte Esterase Blood Type Antibody Screen Active Medications Generic Name Dose Route Start Last Admin Trade Name Freq PRN Reason Stop Dose Admin Acetaminophen 650 mg 12/24/18 06:47 Tylenol - PO Q6H PRN Fever Heparin Sodium (Porcine) 1,000 unit 12/24/18 02:21 Heparin - IVPUSH PRN PRN Heparin Heparin Sodium (Porcine) 5,000 unit 12/24/18 02:21 Heparin - IVPUSH PRN PRN Heparin Heparin Sodium (Porcine) 25, 500 mls @ 20 mls/hr 12/24/18 02:30 12/24/18 09: 22 000 unit/ Sodium Chloride IV 1,150 unit/hr TITR HERNÁN 23 mls/hr Titration Protocol 1,000 UNIT/HR ASSESSMENT/PLAN: 43 yo M with a PMHx of muscular dysrophy, GERD, vertigo, presents with abdominal pain found to have Portal vein thrombosis. #Portal Vein Thrombosis #Thrombocytopenia -no known family history of thrombophilia -CT Abdomen/Pelvis was done with contrast that showed blood clot in the main portal vein, right portal vein, superior mesenteric vein and multiple mesenteric tributary veins. -Heparin drip started in the ED. -Lovenox recommended, especially if unable to properly titrate heparin. -Will discuss starting coumadin vs NOAC on discharge. -GI consult Recommended -Vascular on board. -Thrombophilia workup sent -Thrombocytopenia possibly from platelet consumption. FU repeat CBC Dispo: We will continue to follow the patient. Thank you for this consultative opportunity. Visit type - Emergency Visit Emergency Visit: Yes ED Registration Date: 12/24/18 Care time: The patient presented to the Emergency Department on the above date and was hospitalized for further evaluation of their emergent condition. - New Patient This patient is new to me today: Yes Date on this admission: 12/24/18 - Critical Care Critical Care patient: No
--- NOTE | 2018-12-24 10:14 | EKG ---
Test Reason : Blood Pressure : / mmHG Vent. Rate : 082 BPM Atrial Rate : 082 BPM P-R Int : 184 ms QRS Dur : 086 ms QT Int : 394 ms P-R-T Axes : 045 -13 -02 degrees QTc Int : 460 ms POOR DATA QUALITY, INTERPRETATION MAY BE ADVERSELY AFFECTED SINUS RHYTHM WITH FREQUENT PREMATURE VENTRICULAR COMPLEXES IN A PATTERN OF BIGEMINY VOLTAGE CRITERIA FOR LEFT VENTRICULAR HYPERTROPHY ABNORMAL ECG WHEN COMPARED WITH ECG OF 27-JUL-2017 08:11, PREMATURE VENTRICULAR COMPLEXES ARE NOW PRESENT Confirmed by TONY COHEN MD ([id number]) on 12/24/2018 10:13:59 AM Referred By: Confirmed By:TONY COHEN MD
[2018-12-24] MEDS: ACETAMINOPHEN 325 MG TABLET (FP) PO PRN (11:35)
--- NOTE | 2018-12-24 11:45 | PN ---
Teaching Attending Note Name of Resident: Betty Grossman ATTENDING PHYSICIAN STATEMENT I saw and evaluated the patient. I reviewed the resident's note and discussed the case with the resident. I agree with the resident's findings and plan as documented. SUBJECTIVE:continues to have pain but states improved since arrival. denies Cp, SOB, fever, chills, N/V/C/D no history of clotting disorders for him or his family. states he ambulates with cane OBJECTIVE: Last Vital Signs Temp Pulse Resp BP Pulse Ox 98.1 F 81 16 115/71 95 12/24/18 10:00 12/24/18 10:00 12/24/18 10:00 12/24/18 10:00 12/24/18 10:00 General NAD CV S1 S2 RRRR no murmur/rub/gallop Lungs CTA B/L no wheezing/rales/rhonchi Abdomen soft +periumbilical pain. ND no rebound or guarding Extremiteis no pedal edema ASSESSMENT AND PLAN: 43yo M wtih PMH muscular dystrophy and obesity presented to the ER with abdominal pain and found on imaging to have thrombosis in main portal vein, right portal vein, superior mesenteric vein and multiple mesenteric tributary veins. 1. Vein thrombosis- multiple found, portal/superior mesenteric and some tributaries this is on prelim read. awaiting official read. started on hep ggt. vascular surgery and hematology consulted. will see if intervention is indicated although doubtful unless high clot burden. pt hemodynamically stable. will need hypercoagability workup as outpatient. pain control 2. Thrombocytopenia- possible reactive. too soon to be from heparin. will monitor. no signs of bleeding. hematology consulted 3. muscular dystrophy 4. obesity- BMI 34.9
[2018-12-24] MEDS: MORPHINE SULFATE 2 MG/ML VIAL IVPUSH PRN ×2 (12:37→22:24)
--- NOTE | 2018-12-24 12:58 | CONSULT ---
Consult - History of Present Illness History of Present Illness: 43 year old man admitted because of several days of periumbilical abdominal pain. He was seen in the ER on 12/22 and sent home without imaging. He returned yesterday. A CT scan identified a large portal vein thrombus extending to superior mesenteric branches. No intestinal edema was identified. His pain has improved a little and he is able to eat. No fever or chills, no nausea or vomiting, no diarrhea. He has no prior history of VTE or family history reported. No history of malignancy or liver disease. 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) Infectious Disease: Yes: Other (pneumonia in March 2014) Musculoskeletal: Yes: Other (Myotonic muscular dystrophy) - Past Surgical History Past Surgical History: Yes: Appendectomy - Alcohol/Substance Use Hx Alcohol Use: No History of Substance Use: reports: None - Smoking History Smoking history: Never smoked Have you smoked in the past 12 months: No Aproximately how many cigarettes per day: 0 - Social History Usual Living Arrangement: With Parent ADL: Independent Home Medications - Allergies Allergies/Adverse Reactions: Allergies Allergy/AdvReac Type Severity Reaction Status Date / Time Penicillins Allergy Rash Verified 12/22/18 15:30 - Home Medications Home Medications: Ambulatory Orders Famotidine [Pepcid] 20 mg PO BID #20 tablet 12/22/18 Mag Hydrox/Al Hydrox/Simeth [Mylanta Suspension -] 30 ml PO Q6H PRN #1 bottle Physical Exam Vital Signs: Vital Signs Temperature 98.1 F 12/24/18 10:00 Pulse Rate 81 12/24/18 10:00 Respiratory Rate 16 12/24/18 10:00 Blood Pressure 115/71 12/24/18 10:00 O2 Sat by Pulse Oximetry (%) 95 12/24/18 10:00 Constitutional: Yes: Other (Heavy set) Eyes: Yes: WNL Neck: Yes: Supple Cardiovascular: Yes: Regular Rate and Rhythm Respiratory: Yes: Regular Gastrointestinal: Yes: Abdomen, Obese, Tenderness (periumbilical tenderness and guarding. Mild rebound tenderness.) Labs: CBC, BMP 12/24/18 07:46 12/24/18 07:46 Imaging - Results Cat Scan: Image Reviewed Problem List - Problems (1) Portal vein thrombosis Assessment/Plan: CT appearance suggests a subacute or chronic portal vein thrombosis. Whether this is the cause of his abdominal pain is unclear. There is no abnormal appearing bowel on CT to suggest venous congestion in the bowel. There are no other signs of abdominal pathology at this time. The management of PVT is anticoagulation and surgical treatment for bowel damage in severe cases. Transhepatic thrombolysis is attempted in severe situations but is not indicated at this time. I would get General Surgery consult to follow patient as they would need to decide on management if his symptoms worsen. Code(s): I81 - PORTAL VEIN THROMBOSIS
--- NOTE | 2018-12-24 19:00 | CONSULT ---
Consult - text type - Consultation Consultation Note: 43 year old male with PMH of Muscular Dystrophy, GERD, vertigo, who presents with 4 days of abdominal pain in the periumbilical region which is exacerbated by movement and touch. No fever/vomiting/bleeding per rectum/diarrhea CT Abdomen/Pelvis was done with contrast that showed blood clot in the main portal vein, right portal vein, superior mesenteric vein and multiple mesenteric tributary veins. PAST MEDICAL HISTORY: GERD, NAFLD, Vertigo, Muscular dystrophy PAST SURGICAL HISTORY: Appendectomy, Tonsillectomy, Tympanostomy placement b/l, Social History: Smoking: Denies Alcohol: Denies Drugs: Denies Family History: Allergies Penicillins Allergy (Verified 12/22/18 15:30) Rash HOME MEDICATIONS: Home Medications Medication Instructions Recorded Famotidine [Pepcid] 20 mg PO BID #20 tablet 12/22/18 Mag Hydrox/Al Hydrox/Simeth 30 ml PO Q6H PRN #1 bottle 12/22/18 [Mylanta Suspension -] AFVSS Cor: RSR, No murmurs, No gallops Lungs: Clear to P&A Abd: Soft, Normal bowel sounds, No organomegaly Ext:No significant edema Skin: No rashes, Integument intact PHYSICAL EXAMINATION ASSESSMENT/PLAN: 43 year old male with PMH of Muscular Dystrophy, GERD, vertigo, who presents with 4 days of abdominal pain in the periumbilical region which is exacerbated by movement and touch. No fever/vomiting/bleeding per rectum/diarrhea CT Abdomen/Pelvis was done with contrast that showed blood clot in the main portal vein, right portal vein, superior mesenteric vein and multiple mesenteric tributary veins. On heparin will request gi consult will check thrombophilia w/u given unusual location of the clot. ? thrombophilia related to myotonic dystrophy
[2018-12-25] MEDS: HEPARIN - 25,000 UNIT in SODIUM CHLORIDE 495 ML IV SCH (00:29)
[2018-12-25 08:15] LABS: BASO % 0.3 % (0-2.0); EOS % 4.1 % (0-4.5); HEMATOCRIT 45.8 % (35.4-49); HEMOGLOBIN 15.5 GM/dL (11.7-16.9); LYMPH % 49.6 % (8-40); MCH 30.9 pg (25.7-33.7); MCHC 33.8 g/dl (32.0-35.9); MEAN CELL VOLUME 91.5 fl (80-96); MEAN PLT VOLUME 9.5 fl (7.5-11.1); MONO % 5.6 % (3.8-10.2); NEUT % 40.4 % (42.8-82.8); PLATELET COUNT 138 K/MM3 (134-434); RDW 13.5 % (11.9-15.9); WHITE BLOOD COUNT 7.6 K/mm3 (4.0-10.0)
[2018-12-25 08:46] LABS: INR 1.23 (0.83-1.09); PROTHROMBIN TIME (PATIENT) 14.5 SEC (9.7-13.0)
[2018-12-25 08:49] LABS: ACTIVATED PTT 95.6 SECONDS (25.2-36.5)
[2018-12-25] MEDS ORDERED: DOCUSATE SODIUM 100 MG CAPSULE (FP) PO PRN (09:08)
[2018-12-25] MEDS: ENOXAPARIN NA (PORCINE) 100 MG/1 ML DISP.SYRIN SQ SCH ×2 (09:47→21:38)
[2018-12-25] MEDS: oxyCODONE HCL 5 MG TABLET PO PRN ×2 (09:48→22:04)
[2018-12-25] MEDS: POLYETHYLENE GLYCOL 3350 119 GM BTL PO SCH (09:48)
--- NOTE | 2018-12-25 10:01 | PN ---
Physical Exam: SUBJECTIVE: Patient seen and examined. No chest pain, no shortness of breath, tolerating food. Pt reported being in pain yesterday. Had been getting morphine for pain OBJECTIVE: Vital Signs Period Temp Pulse Resp BP Sys/Maddox Pulse Ox Last 24 Hr 97.8 F-99.8 F 71-80 16-20 98-114/55-62 95 GENERAL: The patient is obese, awake, alert, and fully oriented, in no acute painful distress. LUNGS: Breath sounds equal, clear to auscultation bilaterally HEART: Regular rate and rhythm, S1, S2 ABDOMEN: Soft, minimal periumbilical tenderness, obese, nondistended, normoactive bowel sounds, no guarding EXTREMITIES: 2+ pulses, warm, well-perfused, no edema. NEUROLOGICAL: Mild deformity of b/l upper extremities. No lateralizing signs. Moves all limbs. CBC, BMP 12/25/18 06:15 12/25/18 06:15 Laboratory Results - last 24 hr 12/24/18 12/25/18 12/25/18 16:00 06:15 06:15 WBC 7.6 RBC 5.00 Hgb 15.5 Hct 45.8 MCV 91.5 MCH 30.9 MCHC 33.8 RDW 13.5 Plt Count 138 MPV 9.5 Absolute Neuts (auto) 3.1 Neutrophils % 40.4 L Lymphocytes % 49.6 H Monocytes % 5.6 Eosinophils % 4.1 Basophils % 0.3 Nucleated RBC % 0 PT with INR 14.50 H INR 1.23 H PTT (Actin FS) 58.5 H 95.6 H Active Medications Generic Name Dose Route Start Last Admin Trade Name Freq PRN Reason Stop Dose Admin Acetaminophen 650 mg 12/24/18 06:47 12/24/18 11:35 Tylenol - PO 650 mg Q6H PRN Administration Fever Docusate Sodium 100 mg 12/25/18 14:00 Colace - PO TID HERNÁN Enoxaparin Sodium 100 mg 12/25/18 10:00 12/25/18 09:47 Lovenox - SQ 100 mg BID HERNÁN Administration Oxycodone HCl 5 mg 12/25/18 09:08 12/25/18 09:48 Roxicodone - PO 5 mg Q6H PRN Administration PAIN LEVEL 6-10 Polyethylene Glycol 17 gm 12/25/18 10:00 12/25/18 09:48 Miralax (For Daily Use) - PO Not Given DAILY [facility] Ambulatory Orders Famotidine [Pepcid] 20 mg PO BID #20 tablet 12/22/18 Mag Hydrox/Al Hydrox/Simeth [Mylanta Suspension -] 30 ml PO Q6H PRN #1 bottle Current Medications Acetaminophen (Tylenol -) 650 mg PO Q6H PRN PRN Reason: Fever Last Admin: 12/26/18 04:07 Dose: 650 mg Docusate Sodium (Colace -) 100 mg PO TID [facility] Last Admin: 12/26/18 05:27 Dose: Not Given Enoxaparin Sodium (Lovenox -) 100 mg SQ BID [facility] Last Admin: 12/25/18 21:38 Dose: 100 mg Oxycodone HCl (Roxicodone -) 5 mg PO Q6H PRN PRN Reason: PAIN LEVEL 6-10 Last Admin: 12/26/18 04:08 Dose: 5 mg Polyethylene Glycol (Miralax (For Daily Use) -) 17 gm PO DAILY [facility] Last Admin: 12/25/18 09:48 Dose: Not Given CTAP 09/23/18: Thrombose within main portal vein and R portal v, superior mesenteric v and several superior mesenteric v branches. Associated mesenteric edema, probably mild at this time. Appendeceal stump, no obvious edema or fluid accumulation. No diverticulitis/colitis. Small to moderate umbilical hernia. Diffuse hepatic steatosis. Mild splenomegaly (14cm). Imp: Acute portomesenteric thrombosis. ASSESSMENT/PLAN: 43 year old male with PMH of muscular dystrophy, GERD, and vertigo who presented with periumbilical abdominal pain found to have portal vein thrombosis of R portal v, superior mesenteric v and multiple mesenteric tributaries #Portal vein thrombosis #Obesity #muscular dystrophy #GERD #hx of vertigo #Umbilical hernia #Splenomegaly #chronically elevated liver enzymes pt now on full dose lovenox hypercoagulable work up pending Pt ambulates with assistance of cane Pt maybe a candidate for thrombolysis May need transfer to a tertiary center supervisor intermediates coumadin vs NOAC discussion pending Appreciate recs from vascular/GI/hemonc/sx Pt recommended to be NPO LRD5 @83 Hepatitis panel pending Visit type - Emergency Visit Emergency Visit: Yes ED Registration Date: 12/24/18 Care time: The patient presented to the Emergency Department on the above date and was hospitalized for further evaluation of their emergent condition. - New Patient This patient is new to me today: No - Critical Care Critical Care patient: No - Discharge Referral Referred to [facility] No
[2018-12-25 10:11] LABS: ALBUMIN 3.1 g/dl (3.4-5.0); BILIRUBIN,TOTAL 0.9 mg/dL (0.2-1); BLOOD UREA NITROGEN 8.6 mg/dL (7-18); CALCIUM 8.4 mg/dL (8.5-10.1); CREATININE 0.5 mg/dL (0.55-1.3); MAGNESIUM 2.4 mg/dL (1.8-2.4); PHOSPHOROUS 2.4 mg/dL (2.5-4.9); POTASSIUM 4.3 mmol/L (3.5-5.1); TOT PROT 6.2 g/dl (6.4-8.2)
--- NOTE | 2018-12-25 12:42 | PN ---
Teaching Attending Note Name of Resident: Betty Grossman ATTENDING PHYSICIAN STATEMENT I saw and evaluated the patient. I reviewed the resident's note and discussed the case with the resident. I agree with the resident's findings and plan as documented with exceptions below. SUBJECTIVE: Patient seen and examined. Leila-umbilical pain but variable when asked. no nausea, vomiting, last BM 2 days ago. No dyspnea, leg pain or concerns. OBJECTIVE: Vital Signs Period Temp Pulse Resp BP Sys/Maddox Pulse Ox Last 24 Hr 97.8 F-99.8 F 71-80 16-20 98-114/55-78 93-95 Intake & Output 12/22/18 12/23/18 12/24/18 12/25/18 23:59 23:59 23:59 23:59 Intake Total 1702 Output Total 650 300 Balance 1052 -300 Weight 216 lb 216 lb General: lying in bed, no acute distress Chest: CTAB, no rales or wheezing Abdomen;Soft, obese, mild leila-umbilical tenderness, no voluntary or involuntary guarding or rigidity, pos bowel sounds Extremities: no edema CVS:S1s2 regular Home Medications Medication Instructions Recorded Famotidine [Pepcid] 20 mg PO BID #20 tablet 12/22/18 Mag Hydrox/Al Hydrox/Simeth 30 ml PO Q6H PRN #1 bottle 12/22/18 [Mylanta Suspension -] Active Medications Acetaminophen (Tylenol -) 650 mg PO Q6H PRN PRN Reason: Fever Last Admin: 12/24/18 11:35 Dose: 650 mg Docusate Sodium (Colace -) 100 mg PO TID [facility] Enoxaparin Sodium (Lovenox -) 100 mg SQ BID [facility] Last Admin: 12/25/18 09:47 Dose: 100 mg Oxycodone HCl (Roxicodone -) 5 mg PO Q6H PRN PRN Reason: PAIN LEVEL 6-10 Last Admin: 12/25/18 09:48 Dose: 5 mg Polyethylene Glycol (Miralax (For Daily Use) -) 17 gm PO DAILY [facility] Last Admin: 12/25/18 09:48 Dose: Not Given Laboratory Results - last 24 hr 12/24/18 12/25/18 12/25/18 16:00 06:15 06:15 WBC 7.6 RBC 5.00 Hgb 15.5 Hct 45.8 MCV 91.5 MCH 30.9 MCHC 33.8 RDW 13.5 Plt Count 138 MPV 9.5 Absolute Neuts (auto) 3.1 Neutrophils % 40.4 L Lymphocytes % 49.6 H Monocytes % 5.6 Eosinophils % 4.1 Basophils % 0.3 Nucleated RBC % 0 PT with INR 14.50 H INR 1.23 H PTT (Actin FS) 58.5 H 95.6 H Sodium Potassium Chloride Carbon Dioxide Anion Gap BUN Creatinine Est GFR (CKD-EPI)AfAm Est GFR (CKD-EPI)NonAf Random Glucose Calcium Phosphorus Magnesium Total Bilirubin AST ALT Alkaline Phosphatase Total Protein Albumin 12/25/18 06:15 WBC RBC Hgb Hct MCV MCH MCHC RDW Plt Count MPV Absolute Neuts (auto) Neutrophils % Lymphocytes % Monocytes % Eosinophils % Basophils % Nucleated RBC % PT with INR INR PTT (Actin FS) Sodium 141 Potassium 4.3 Chloride 105 Carbon Dioxide 32 Anion Gap 4 L BUN 8.6 Creatinine 0.5 L Est GFR (CKD-EPI)AfAm 152.75 Est GFR (CKD-EPI)NonAf 131.80 Random Glucose 83 Calcium 8.4 L Phosphorus 2.4 L Magnesium 2.4 Total Bilirubin 0.9 AST 41 H ALT 45 Alkaline Phosphatase 123 H Total Protein 6.2 L Albumin 3.1 L ASSESSMENT AND PLAN: 43 yom with PMHx of muscular dystrophy, obesity, Appendectomy 07/2017, admitted with abdominal pain, found with portal vein thrombosis -Main portal vein/Right portal vein/Superior mesentric vein/mesentric tributeries thrombosis -Leila-umbilical abdominal pain -Muscular dystrophy -Obesity -s/p Appendectomy 07/2017 Plan: Dc heparin drip., Start lovenox Discuss with heme, coumadin vs NOAC. Follow up hypercoagulable work up Abdominal exam benign, no acute concerns, tolerating diet well Change to PO pain regimen. Vascular surgery input noted, Follow up GI input Dispo home with services pending AC recs, GI input and clinical course. Plan discussed with patient and nursing, all questions answered.
[2018-12-25] MEDS: DOCUSATE SODIUM 100 MG CAPSULE (FP) PO SCH ×2 (13:11→21:39)
--- NOTE | 2018-12-25 14:34 | PN ---
Progress Note (short form) - Note Progress Note: Heparin drip was stopped and Lovenox started. Patient complaining of increased pain extending up to RUQ. No fever Abd full with guarding, mild tenderness on palpation. WBC WNL, LFT slight elevation Alk Phos. Imp: Portal vein thrombosis with abdominal pain. Unclear if he is developing mesenteric venous congestion. Rec: General Surgery should evaluate this patient. If it appears that the venous thrombosis is increasing on anticoagulation he will need transfer to a tertiary care center for transhepatic portal vein cannulation and thrombolysis. Problem List - Problems (1) Portal vein thrombosis Code(s): I81 - PORTAL VEIN THROMBOSIS
--- NOTE | 2018-12-25 15:27 | CONSULT ---
Consult Consult Specialty:: General Surgery Reason for Consultation:: Portal vein Thrombosis - History of Present Illness Chief Complaint: abdominal pain History of Present Illness: 3 year old man admitted because of several days of periumbilical abdominal pain. He was seen in the ER on 12/22 and sent home without imaging. He returned yesterday. A CT scan identified a large portal vein thrombus extending to superior mesenteric branches. No intestinal edema was identified. His pain has improved a little and he is able to eat. No fever or chills, no nausea or vomiting, no diarrhea. We were called to assess. 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) Infectious Disease: Yes: Other (pneumonia in March 2014) Musculoskeletal: Yes: Other (Myotonic muscular dystrophy) - Past Surgical History Past Surgical History: Yes: Appendectomy - Alcohol/Substance Use Hx Alcohol Use: No History of Substance Use: reports: None - Smoking History Smoking history: Never smoked Have you smoked in the past 12 months: No Aproximately how many cigarettes per day: 0 - Social History Usual Living Arrangement: With Parent ADL: Independent Home Medications - Allergies Allergies/Adverse Reactions: Allergies Allergy/AdvReac Type Severity Reaction Status Date / Time Penicillins Allergy Rash Verified 12/22/18 15:30 - Home Medications Home Medications: Ambulatory Orders Famotidine [Pepcid] 20 mg PO BID #20 tablet 12/22/18 Mag Hydrox/Al Hydrox/Simeth [Mylanta Suspension -] 30 ml PO Q6H PRN #1 bottle Review of Systems - Review of Systems Constitutional: denies: Chills, Fever Eyes: denies: Blind Spots, Blurred Vision, Double Vision HENT: denies: Difficult Swallowing, Throat Pain Neck: denies: Decreased ROM, Pain on Movement Cardiovascular: denies: Chest Pain, Palpitations Respiratory: denies: Cough, SOB Gastrointestinal: reports: Abdominal Pain. denies: Bloating, Constipation, Diarrhea Genitourinary: denies: Burning, Discharge, Dysuria Breasts: reports: No Symptoms Reported. denies: Pain Musculoskeletal: denies: Joint Swelling, Muscle Pain Integumentary: denies: Lesions, Lump, Pallor Neurological: denies: Seizure, Syncope Endocrine: denies: Unexplained Weight Gain, Unexplained Weight Loss Hematology/Lymphatic: denies: Easily Bruised, Excessive Bleeding Psychiatric: denies: Anxiety, Depression Physical Exam Vital Signs: Vital Signs Temperature 98.3 F 12/25/18 13:30 Pulse Rate 75 12/25/18 13:30 Respiratory Rate 20 12/25/18 13:30 Blood Pressure 106/40 L 12/25/18 13:30 O2 Sat by Pulse Oximetry (%) 93 L 12/25/18 07:50 Vital Signs Period Temp Pulse Resp BP Sys/Maddox Pulse Ox Last 24 Hr 97.9 F-99.3 F 71-84 17-18 93-120/53-67 95-95 Constitutional: Yes: Well Nourished, No Distress, Calm Eyes: Yes: Conjunctiva Clear, EOM Intact HENT: Yes: Atraumatic, Normocephalic Neck: Yes: Supple, Trachea Midline Cardiovascular: Yes: Regular Rate and Rhythm, S1, S2 Respiratory: Yes: Regular, CTA Bilaterally Gastrointestinal: Yes: Normal Bowel Sounds, Soft ...Rectal Exam: Yes: Deferred Renal/: No: CVA Tenderness - Left, CVA Tenderness - Right Breast(s): No: Discharge from Nipple, Mass, Skin Changes Musculoskeletal: No: Muscle Pain, Muscle Weakness Extremities: No: Cool, Cyanosis Edema: No Peripheral Pulses WNL: Yes Integumentary: No: Jaundice, Petechiae Neurological: Yes: Alert, Oriented Psychiatric: Yes: Alert, Oriented Labs: CBC, BMP 12/25/18 06:15 12/25/18 06:15 Imaging - Results Cat Scan: Report Reviewed, Image Reviewed Problem List - Problems (1) Portal vein thrombosis Assessment/Plan: 43 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 the mainstay of therapy is non- operative, and based on anticoagulation therapy. Surgery only has a role when the ischemic damage is substantial. There is no evidence that this is occuring thus. No acute surgical intervention is indicated. Medical management anticoagulation therapy NPO and IVF until abdominial pain is improved then advance as tolerated Thank you for the opportunity to participate in the care of this patient. Code(s): I81 - PORTAL VEIN THROMBOSIS (2) Abdominal pain in male Code(s): R10.9 - UNSPECIFIED ABDOMINAL PAIN (3) Abdominal pain Code(s): R10.9 - UNSPECIFIED ABDOMINAL PAIN Qualifiers: Abdominal location: periumbilical Qualified Code(s): R10.33 - Periumbilical pain (4) Muscular dystrophy Code(s): G71.0 - MUSCULAR DYSTROPHY * DO NOT USE * (5) Vertigo Code(s): R42 - DIZZINESS AND GIDDINESS
--- NOTE | 2018-12-25 16:12 | CON.GI ---
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 He states that he has been experiencing 5 days of progressively worsening mid abdominal and periumbilical umbilical pain. He denied simiar episodes in the past. There was no associated nausea, vomiting, diarrhea, rectal bleeding, melena. CT scan revealed extensive SMV/portal vein thrombosis. He has been on IV heparin and was changed to SC Lovenox. hematology has been evaluating. He continues to have pain. There is no family history of colorectal cancer ro other GI malignancy. 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) Hepatobiliary: Yes: Other (Fatty Liver) Infectious Disease: Yes: Other (pneumonia in March 2014) Musculoskeletal: Yes: Other (Myotonic muscular dystrophy) - Past Surgical History Past Surgical History: Yes: Appendectomy, Tonsillectomy Additional Surgical History: tube placement b/l ears, varicocele, - Alcohol/Substance Use Hx Alcohol Use: No History of Substance Use: reports: None - Smoking History Smoking history: Never smoked Have you smoked in the past 12 months: No Aproximately how many cigarettes per day: 0 - Social History Usual Living Arrangement: With Parent ADL: Independent Occupation: Diabled Place of : Other ([place]) Came to [place] (year): Age 32 History of Recent Travel: No Home Medications - Allergies Allergies/Adverse Reactions: Allergies Allergy/AdvReac Type Severity Reaction Status Date / Time Penicillins Allergy Rash Verified 12/22/18 15:30 - Home Medications Home Medications: Ambulatory Orders Famotidine [Pepcid] 20 mg PO BID #20 tablet 12/22/18 Mag Hydrox/Al Hydrox/Simeth [Mylanta Suspension -] 30 ml PO Q6H PRN #1 bottle Family Disease History - Family Disease History Family Disease History: Other: Father (: PNA: age 47), Mother (Alive: HTN), Sister (1, healthy) Other Family History: No children, no family history of colorectal cancer or other GI malignancy Review of Systems - Review of Systems Constitutional: denies: Chills Cardiovascular: denies: Chest Pain Respiratory: denies: Cough, SOB Gastrointestinal: reports: Abdominal Pain. denies: Constipation, Diarrhea, Dysphagia, Melena, Nausea, Rectal Bleeding, Vomiting Physical Exam-GI Vital Signs: Vital Signs Temperature 98.3 F 12/25/18 13:30 Pulse Rate 75 12/25/18 13:30 Respiratory Rate 20 12/25/18 13:30 Blood Pressure 106/40 L 12/25/18 13:30 O2 Sat by Pulse Oximetry (%) 93 L 12/25/18 07:50 Constitutional: Yes: Calm Eyes: No: Sclera Icterus Cardiovascular: Yes: Regular Rate and Rhythm Respiratory: Yes: CTA Bilaterally Gastrointestinal Inspection: No: Distention ...Auscultate: Yes: Normoactive Bowel Sounds ...Palpate: Yes: Soft, Tenderness (Marked TTP mid abdomen / periumbilical region ) ...Percussion: No: Tympanitic Edema: No (No LE edema) Neurological: Yes: Alert Labs: CBC, BMP 12/25/18 06:15 12/25/18 06:15 INR, PTT INR 1.23 (0.83-1.09) H 12/25/18 06:15 Hepatic Panel Total Bilirubin 0.9 mg/dL (0.2-1) 12/25/18 06:15 AST 41 U/L (15-37) H 12/25/18 06:15 ALT 45 U/L (13-61) 12/25/18 06:15 Alkaline Phosphatase 123 U/L (45-117) H 12/25/18 06:15 Albumin 3.1 g/dl (3.4-5.0) L 12/25/18 06:15 Problem List - Problems (1) Portal vein thrombosis Assessment/Plan: Portomesenteric thrombosis of unclear etiology. By history it sounds like an acute process There is likely some degree of liver dysfunction given chronicity of LFT abnormalities. ? if from muscle source as well given previously elevated CPK levels On A/C per hemr Patient has been seen by vascular surgery. general surgery consult as well as transfer to tertiary care center was suggested Given extensive nature of the portomesenteric thrombus, continued pain symptoms and potential for chronic complications, evaluation for candidacy for lysis therapy at a tertiary care center would be a reasonable option. This was discussed with Dr. Jensen. Check screening hepatitis serologies ordered Hypercoagulable work-up / AC per heme Code(s): I81 - PORTAL VEIN THROMBOSIS
--- NOTE | 2018-12-25 17:44 | PN ---
Physical Exam: SUBJECTIVE: Patient seen and examined. No events overnight. Patient complaining of new RUQ pain. OBJECTIVE: Vital Signs Period Temp Pulse Resp BP Sys/Maddox Pulse Ox Last 24 Hr 97.8 F-99.8 F 71-80 16-20 102-114/40-78 93-95 GENERAL: in NAD HEAD: Normal with no signs of trauma. EYES: Pupils equal, round and reactive to light, extraocular movements intact, sclera anicteric EARS, NOSE, THROAT: oropharynx clear without exudates, no exudates NECK: supple without lymphadenopathy, JVD, or masses. LUNGS: CTAB, No wheezes, and no crackles HEART: RRR, normal S1 and S2 without murmur, rub or gallop. ABDOMEN: soft, periumbilical tenderness to palpation. RUQ tenderness to palpation. negative guerrero signs. no organomegaly UPPER EXTREMITIES: 2+ pulses, atrophic hands b/l, No peripheral edema. LOWER EXTREMITIES: 2+ pulses, No peripheral edema. No calf tenderness NEUROLOGICAL: Cranial nerves II-XII intact. Normal speech. Laboratory Results - last 24 hr 12/25/18 12/25/18 12/25/18 06:15 06:15 06:15 WBC 7.6 RBC 5.00 Hgb 15.5 Hct 45.8 MCV 91.5 MCH 30.9 MCHC 33.8 RDW 13.5 Plt Count 138 MPV 9.5 Absolute Neuts (auto) 3.1 Neutrophils % 40.4 L Lymphocytes % 49.6 H Monocytes % 5.6 Eosinophils % 4.1 Basophils % 0.3 Nucleated RBC % 0 PT with INR 14.50 H INR 1.23 H PTT (Actin FS) 95.6 H Sodium 141 Potassium 4.3 Chloride 105 Carbon Dioxide 32 Anion Gap 4 L BUN 8.6 Creatinine 0.5 L Est GFR (CKD-EPI)AfAm 152.75 Est GFR (CKD-EPI)NonAf 131.80 Random Glucose 83 Calcium 8.4 L Phosphorus 2.4 L Magnesium 2.4 Total Bilirubin 0.9 AST 41 H ALT 45 Alkaline Phosphatase 123 H Total Protein 6.2 L Albumin 3.1 L Active Medications Generic Name Dose Route Start Last Admin Trade Name Freq PRN Reason Stop Dose Admin Acetaminophen 650 mg 12/24/18 06:47 12/24/18 11:35 Tylenol - PO 650 mg Q6H PRN Administration Fever Docusate Sodium 100 mg 12/25/18 14:00 12/25/18 13:11 Colace - PO Not Given TID HERNÁN Enoxaparin Sodium 100 mg 12/25/18 10:00 12/25/18 09:47 Lovenox - SQ 100 mg BID HERNÁN Administration Oxycodone HCl 5 mg 12/25/18 09:08 12/25/18 09:48 Roxicodone - PO 5 mg Q6H PRN Administration PAIN LEVEL 6-10 Polyethylene Glycol 17 gm 12/25/18 10:00 12/25/18 09:48 Miralax (For Daily Use) - PO Not Given DAILY [facility] ASSESSMENT/PLAN: #Acute Portomesenteric thrombosis #Main portal vein/Right portal vein/Superior mesentric vein/mesentric tributeries thrombosis #Thrombocytopenia-resolved -worsening abdominal pain -no known family history of thrombophilia -CT Abdomen/Pelvis was done with contrast that showed blood clot in the main portal vein, right portal vein, superior mesenteric vein and multiple mesenteric tributary veins. -heparin drip d/annemarie -Lovenox started -Will discuss starting coumadin vs NOAC on discharge. -GI/Sx/Vascular on board -Thrombophilia workup sent Visit type - Emergency Visit Emergency Visit: Yes ED Registration Date: 12/24/18 Care time: The patient presented to the Emergency Department on the above date and was hospitalized for further evaluation of their emergent condition. - New Patient This patient is new to me today: No - Critical Care Critical Care patient: No
--- NOTE | 2018-12-25 20:29 | PN ---
Progress Note (short form) - Note Progress Note: Patient seen and examined c/o RUQ pain Last Vital Signs Temp Pulse Resp BP Pulse Ox 98.0 F 72 18 120/53 L 93 L 12/25/18 18:00 12/25/18 18:00 12/25/18 18:00 12/25/18 18:00 12/25/18 07:50 Cor: RSR, No murmurs, No gallops Lungs: Clear to P&A Abd: Soft, Normal bowel sounds, No organomegaly Ext:No significant edema Labs/Meds reviewed A/P 43 year old male with PMH of Muscular Dystrophy, GERD, vertigo, who presents with 4 days of abdominal pain in the periumbilical region which is exacerbated by movement and touch. No fever/vomiting/bleeding per rectum/diarrhea CT Abdomen/Pelvis was done with contrast that showed blood clot in the main portal vein, right portal vein, superior mesenteric vein and multiple mesenteric tributary veins. [facility] given unusual location of the clot. ? thrombophilia related to myotonic dystrophy f/u gi/ surgery recommendations
[2018-12-26] MEDS: ACETAMINOPHEN 325 MG TABLET (FP) PO PRN (04:07)
[2018-12-26] MEDS: oxyCODONE HCL 5 MG TABLET PO PRN (04:08)
[2018-12-26] MEDS: DOCUSATE SODIUM 100 MG CAPSULE (FP) PO SCH ×3 (05:27→21:04)
[2018-12-26] MEDS ORDERED: DEXTROSE 5%-LACTATED RINGERS 1,000 ML IV SCH (07:15)
[2018-12-26 07:50] LABS: BASO % 0.4 % (0-2.0); EOS % 4.5 % (0-4.5); HEMATOCRIT 45.4 % (35.4-49); HEMOGLOBIN 15.2 GM/dL (11.7-16.9); LYMPH % 46.9 % (8-40); MCH 30.9 pg (25.7-33.7); MCHC 33.6 g/dl (32.0-35.9); MEAN CELL VOLUME 91.9 fl (80-96); MEAN PLT VOLUME 9.3 fl (7.5-11.1); MONO % 5.9 % (3.8-10.2); NEUT % 42.3 % (42.8-82.8); RBC 4.94 M/mm3 (4.00-5.60); RDW 13.6 % (11.9-15.9); WHITE BLOOD COUNT 7.4 K/mm3 (4.0-10.0)
[2018-12-26 08:24] LABS: ALBUMIN 3.2 g/dl (3.4-5.0); BILIRUBIN,TOTAL 0.9 mg/dL (0.2-1); BLOOD UREA NITROGEN 12.8 mg/dL (7-18); CALCIUM 8.7 mg/dL (8.5-10.1); CREATININE 0.5 mg/dL (0.55-1.3); MAGNESIUM 2.5 mg/dL (1.8-2.4); PHOSPHOROUS 1.7 mg/dL (2.5-4.9); POTASSIUM 3.8 mmol/L (3.5-5.1); TOT PROT 6.6 g/dl (6.4-8.2)
[2018-12-26 08:47] LABS: PLATELET COUNT 139 K/MM3 (134-434)
[2018-12-26] MEDS: ENOXAPARIN NA (PORCINE) 100 MG/1 ML DISP.SYRIN SQ SCH ×2 (09:19→21:02)
[2018-12-26] MEDS: POLYETHYLENE GLYCOL 3350 119 GM BTL PO SCH (09:23)
--- NOTE | 2018-12-26 11:20 | PN ---
Physical Exam: SUBJECTIVE: Patient seen and examined, denies any nausea, vomiting, abdominal pain, asking for food. OBJECTIVE: Vital Signs Period Temp Pulse Resp BP Sys/Maddox Pulse Ox Last 24 Hr 98.0 F-99.3 F 71-84 17-20 93-120/40-67 95 Intake & Output 12/23/18 12/24/18 12/25/18 12/26/18 23:59 23:59 23:59 23:59 Intake Total 1702 596 Output Total 650 302 Balance 1052 294 Weight 216 lb 216 lb GENERAL: lying in bed in no acute distress Neck: soft, supple, no JVD Chest: CTAB, no rales or wheezing Abdomen:soft, obese, NT throughout, ND, pos bowel sounds Extremities: no edema, defomities from prior muscular dystrophy CVS: S1S2 regular Laboratory Results - last 24 hr 12/26/18 12/26/18 12/26/18 05:45 05:45 05:45 WBC 7.4 RBC 4.94 Hgb 15.2 Hct 45.4 MCV 91.9 MCH 30.9 MCHC 33.6 RDW 13.6 Plt Count 139 MPV 9.3 Absolute Neuts (auto) 3.1 Neutrophils % 42.3 L Lymphocytes % 46.9 H Monocytes % 5.9 Eosinophils % 4.5 Basophils % 0.4 Nucleated RBC % 0 PTT (Actin FS) 44.3 H Sodium 143 Potassium 3.8 Chloride 104 Carbon Dioxide 31 Anion Gap 8 BUN 12.8 Creatinine 0.5 L Est GFR (CKD-EPI)AfAm 152.75 Est GFR (CKD-EPI)NonAf 131.80 Random Glucose 88 Calcium 8.7 Phosphorus 1.7 L Magnesium 2.5 H Total Bilirubin 0.9 AST 31 ALT 42 Alkaline Phosphatase 126 H Total Protein 6.6 Albumin 3.2 L Active Medications Generic Name Dose Route Start Last Admin Trade Name Freq PRN Reason Stop Dose Admin Acetaminophen 650 mg 12/24/18 06:47 12/26/18 04:07 Tylenol - PO 650 mg Q6H PRN Administration Fever Docusate Sodium 100 mg 12/25/18 14:00 12/26/18 05:27 Colace - PO Not Given TID HERNÁN Enoxaparin Sodium 100 mg 12/25/18 10:00 12/26/18 09:19 Lovenox - SQ 100 mg BID HERNÁN Administration Dextrose/Lactated Ringer's 1,000 mls @ 83 mls/hr 12/26/18 07:15 D5-Lr - IV ASDIR HERNÁN Oxycodone HCl 5 mg 12/25/18 09:08 12/26/18 04:08 Roxicodone - PO 5 mg Q6H PRN Administration PAIN LEVEL 6-10 Polyethylene Glycol 17 gm 12/25/18 10:00 12/26/18 09:23 Miralax (For Daily Use) - PO 17 gm DAILY HERNÁN Administration ASSESSMENT/PLAN: 43 yom with PMHx of muscular dystrophy, obesity, Appendectomy 07/2017, admitted with abdominal pain, found with portal vein thrombosis -Main portal vein/Right portal vein/Superior mesentric vein/mesentric tributeries thrombosis -Anne-umbilical abdominal pain -Muscular dystrophy -Obesity -s/p Appendectomy 07/2017 Plan: Today denies and pain and asking for food. CT A/P with PO and IV contrast today. Abdominal exam benign currently. Continue lovenox. Advance diet pending above imaging. Heme input noted, discuss about coumadin vs NOAC Patient currently pain free, no evidence of bowel injury on prior CT and benign abdominal exam GIven resolution of symptoms and stable abdominal exam, unlikely will benefit from transfer. However, will follow up repeat imaging above and address accordingly. PO pain regimen, d/c narcotics for now and monitor. Dispo pending above imaging. Possible home with services on AC if no new concerns, symptom free and tolerating diet. Plan discussed with patient and nursing, all questions answered. Visit type - Emergency Visit Emergency Visit: Yes ED Registration Date: 12/24/18 Care time: The patient presented to the Emergency Department on the above date and was hospitalized for further evaluation of their emergent condition. - New Patient This patient is new to me today: No - Critical Care Critical Care patient: No - Discharge Referral Referred to [facility] No
[2018-12-26] MEDS ORDERED: PT OWN MED DRAWER 7, Y5N ONE (17:28)
[2018-12-26] MEDS ORDERED: POTASSIUM PHOSPHATE 25 MM in DEXTROSE 5%-WATER - 500 ML IVPB ONE (17:30)
[2018-12-26] MEDS ORDERED: ACETAMINOPHEN 1000 MG/100 ML VIAL (NON FORMULARY) IVPB ONE (18:56)
--- NOTE | 2018-12-26 18:56 | DS ---
Physical Exam: SUBJECTIVE: Patient seen and examined, reports leila-umbilical abdominal pain, Just had PO. OBJECTIVE: Vital Signs Period Temp Pulse Resp BP Sys/Maddox Pulse Ox Last 24 Hr 97.9 F-99.3 F 71-84 17-18 93-118/53-67 95-95 Intake & Output 12/23/18 12/24/18 12/25/18 12/26/18 23:59 23:59 23:59 23:59 Intake Total 1702 596 777 Output Total 650 302 Balance 1052 294 777 Weight 216 lb 216 lb PHYSICAL EXAM GENERAL: sitting in bed, in pain Chest; CTAB, no rales or wheezing Neck: soft, supple, no JVD CVS:S1s2 regular Abdomen:soft, leila-umbilical tenderness, obese, no voluntary or involuntary guarding or rigidity, pos bowel sounds Extremities: no edema Psych: anxious LABS Laboratory Results - last 24 hr 12/25/18 12/26/18 12/26/18 10:28 05:45 05:45 WBC 7.4 RBC 4.94 Hgb 15.2 Hct 45.4 MCV 91.9 MCH 30.9 MCHC 33.6 RDW 13.6 Plt Count 139 MPV 9.3 Absolute Neuts (auto) 3.1 Neutrophils % 42.3 L Lymphocytes % 46.9 H Monocytes % 5.9 Eosinophils % 4.5 Basophils % 0.4 Nucleated RBC % 0 PTT (Actin FS) 44.3 H Protein S Antigen Cancelled Functional Protein S Cancelled Free Protein S Cancelled Sodium Potassium Chloride Carbon Dioxide Anion Gap BUN Creatinine Est GFR (CKD-EPI)AfAm Est GFR (CKD-EPI)NonAf Random Glucose Calcium Phosphorus Magnesium Total Bilirubin AST ALT Alkaline Phosphatase Total Protein Albumin Anti-Cardiolipin IgG Ab <9 Anti-Cardiolipin IgA Ab <9 Anti-Cardiolipin IgM Ab <9 12/26/18 05:45 WBC RBC Hgb Hct MCV MCH MCHC RDW Plt Count MPV Absolute Neuts (auto) Neutrophils % Lymphocytes % Monocytes % Eosinophils % Basophils % Nucleated RBC % PTT (Actin FS) Protein S Antigen Functional Protein S Free Protein S Sodium 143 Potassium 3.8 Chloride 104 Carbon Dioxide 31 Anion Gap 8 BUN 12.8 Creatinine 0.5 L Est GFR (CKD-EPI)AfAm 152.75 Est GFR (CKD-EPI)NonAf 131.80 Random Glucose 88 Calcium 8.7 Phosphorus 1.7 L Magnesium 2.5 H Total Bilirubin 0.9 AST 31 ALT 42 Alkaline Phosphatase 126 H Total Protein 6.6 Albumin 3.2 L Anti-Cardiolipin IgG Ab Anti-Cardiolipin IgA Ab Anti-Cardiolipin IgM Ab CT A/P: 12/23/2018: In comparison to a prior CT study of 07/27/2017 interval development of thrombus is seen within the main portal vein, right portal vein, superior mesenteric vein and several superior mesenteric vein branches. There is associated mesenteric edema which is probably mild at this time. No gross acute noncontrast small bowel pathology is visualized. There is no longer visualization of a fluid-filled dilated appendix. On the current exam there appears to be either an appendiceal stump as a result of prior appendectomy with a stump measuring 3 cm in length. Alternatively if the patient has not had interval surgery this appearance could be on the basis of partial resolution of subacute/chronic appendicitis. A small radiopaque density seen within the distal aspect of this appendix/stump which may represent an appendicolith versus a suture or surgical clip. There is no obvious associated edema or fluid accumulation. No evidence of pneumoperitoneum, abscess, free intraperitoneal fluid or bowel obstruction. The remainder of the exam demonstrates no definite interval change. No CT evidence of diverticulitis or obvious colitis Small to moderate umbilical hernia containing fat only. Diffuse hepatic steatosis. Mild splenomegaly (14 cm length). The pancreas, gallbladder, adrenal glands and kidneys demonstrate no discrete abnormality. There is no aortic aneurysm. No definite lymphadenopathy is noted on the basis of CT size criteria. No obvious pelvic pathology is seen. The partially imaged lower chest demonstrates bibasilar discoid atelectasis. IMPRESSION: acute portomesenteric thrombosis as discussed above. Possible interval appendectomy with identification of an appendiceal stump since the prior CT study of 07/27/2017 versus representing partial nonsurgical resolution of subacute/chronic appendicitis as discussed above. Correlate with medical/surgical history. Close follow-up CT is suggested. The remainder of the exam demonstrates no definite interval change. Small to moderate umbilical hernia containing fat only. Diffuse hepatic steatosis. Mild splenomegaly. Diffuse hepatic steatosis. CT A/P: 12/26/2018: CT scan of the abdomen and pelvis following oral and intravenous contrast. Coronal and sagittal reformatted images were obtained 95 cc of Omnipaque 350 was intravenously injected Comparison: Prior CT scan of the abdomen pelvis dated 12/24/2018 Bibasal atelectatic changes again seen. Cannot rule out infiltrates. The heart remains within normal limits in size. The liver is within normal limits in size with diffuse decreased attenuation compatible with a fatty liver. The spleen is borderline in size measuring 12.4 cm in sagittal length with normal enhancement. Previously visualized filling defect in the main portal vein extending to the right hepatic vein is again seen consistent with a thrombus. Thromboses also involving the mesenteric vein that appears to be enlarged with the mild stranding of the surrounding mesentery that has worsened since the prior exam. Nondistended stomach limiting evaluation of its wall. The gallbladder, pancreas, both adrenal glands and both kidneys appear unremarkable except for a small left renal cyst again seen. There is no evidence of small bowel obstruction. Normal stool burden the colon without wall thickening. Partially distended urinary bladder without wall thickening. Normal size prostate gland. Subcutaneous air pockets in the lower anterior abdominal wall likely iatrogenic due to subcutaneous injections. Visualized osseous structures appear intact IMPRESSION: Previously described thrombosis of the main portal vein is again seen that appears to be slightly extending to the right portal vein as well as thrombosis of the mesenteric vein that demonstrates slight worsening surrounding mesenteric stranding. The rest of the examination is unchanged since prior CT scan of the abdomen dated 12/2018 HOSPITAL COURSE: Date of Admission:12/24/18 Date of Discharge: 12/26/18 Minutes to complete discharge: 45 Discharge Summary Reason For Visit: PORTAL VEIN THROMBOSIS,MYOTONIC MUSCULAR Current Active Problems Abdominal pain (Acute) Abdominal pain in male (Acute) Portal vein thrombosis (Acute) Hospital Course: 43 yom with PMHx of muscular dystrophy, vertigo, GERD, appendectomy 07/2017 admitted with abdominal pain, CT A/P on admission as above, showed extensive portal vein thrombosis in main portal vein, right portal vein, superior mesentric vein and severe superior mesentric vein branches and associated mesentric edema. He was seen by hematology and hypercoaguable work up has been sent, anticardiolipn IgG, IGA, IgM are negative, other results are currently pending. He was started on heparin drip and currently transitioned to full dose lovenox. He was seen by vascular and general surgery. He had ongoing abdominal pain concerns and had a repeat CT A/P as above showing slight extension in right portal vein and slightly worsening mesentric stranding. He was suggested tertiary care transfer for possible transhepatic portal vein cannulation and thrombolysis given ongoing pain and progression. He is accepted at [facility] for further management after discussion with radiology and medicine teams. Condition: Guarded - Instructions Diet, Activity, Other Instructions: You are being transferred to [facility] for further care. You have been accepted by Dr. Centeno. Disposition: TRANSFER ACUTE CARE/OTHER HOSP - Home Medications Comprehensive Discharge Medication List: Ambulatory Orders Famotidine [Pepcid] 20 mg PO BID #20 tablet 12/22/18 Mag Hydrox/Al Hydrox/Simeth [Mylanta Suspension -] 30 ml PO Q6H PRN #1 bottle This patient is new to me today: No Emergency Visit: Yes ED Registration Date: 12/24/18 Care time: The patient presented to the Emergency Department on the above date and was hospitalized for further evaluation of their emergent condition. Critical Care patient: No - Discharge Referral Referred to [facility] Med P.C.: No
[2018-12-26 19:59] VITALS: TEMP 98.6
--- NOTE | 2018-12-26 21:08 | PN ---
Progress Note, Physician Chief Complaint: Feels well. No abdominal pain today. No bleeding. - Current Medication List Current Medications: Active Medications Acetaminophen (Tylenol -) 650 mg PO Q6H PRN PRN Reason: Fever Last Admin: 12/26/18 04:07 Dose: 650 mg Docusate Sodium (Colace -) 100 mg PO TID [facility] Last Admin: 12/26/18 21:04 Dose: Not Given Enoxaparin Sodium (Lovenox -) 100 mg SQ BID [facility] Last Admin: 12/26/18 21:02 Dose: 100 mg Potassium Phosphate 25 mm/ (Dextrose) 508.3333 mls @ 84.72 mls/hr IVPB ONCE ONE Stop: 12/26/18 23:30 Last Admin: 12/26/18 17:56 Dose: 84.72 mls/hr Oxycodone HCl (Roxicodone -) 5 mg PO Q6H PRN PRN Reason: PAIN LEVEL 6-10 Last Admin: 12/26/18 04:08 Dose: 5 mg Polyethylene Glycol (Miralax (For Daily Use) -) 17 gm PO DAILY [facility] Last Admin: 12/26/18 09:23 Dose: 17 gm - Objective Vital Signs: Vital Signs Temperature 98.6 F 12/26/18 19:30 Pulse Rate 109 H 12/26/18 19:40 Respiratory Rate 18 12/26/18 19:30 Blood Pressure 135/73 12/26/18 19:30 O2 Sat by Pulse Oximetry (%) 95 12/26/18 09:00 Constitutional: Yes: No Distress, Calm Eyes: Yes: Conjunctiva Clear Cardiovascular: Yes: Regular Rate and Rhythm Respiratory: Yes: Regular, CTA Bilaterally Gastrointestinal: Yes: Normal Bowel Sounds, Soft. No: Palpable Mass, Tenderness Edema: No Labs: CBC, BMP 12/26/18 05:45 12/26/18 05:45 INR, PTT INR 1.23 (0.83-1.09) H 12/25/18 06:15 Assessment/Plan 43M with muscular dystrophy, GERD, vertigo admitted with 4 days of abdominal pain and found to have thrombosis in main portal vein, right portal vein, superior mesenteric vein and multiple mesenteric tributary veins. Started on enoxaparin. Being considered for thrombolysis. Awaiting hypercoaguable w/u.
[2018-12-26 21:48] VITALS: BP 127/81; PULSE 96
[2018-12-26] MEDS ORDERED: ACETAMINOPHEN 325 MG TABLET (FP) PO PRN (21:58)
[2018-12-26] MEDS ORDERED: oxyCODONE HCL 5 MG TABLET PO PRN (21:58)
[2018-12-26] MEDS ORDERED: ENOXAPARIN NA (PORCINE) 100 MG/1 ML DISP.SYRIN SQ SCH (22:00)
[2018-12-26] MEDS ORDERED: DOCUSATE SODIUM 100 MG CAPSULE (FP) PO SCH (22:00)
[2018-12-27] MEDS ORDERED: POLYETHYLENE GLYCOL 3350 119 GM BTL PO SCH (10:00)
[2018-12-27 15:11] LABS: PROTEIN S FREE 96 % (57-157)
[2018-12-28 18:07] LABS: DRVVT - 37.1 sec (0.0-47.0)
[2018-12-28 21:06] LABS: HEP A AB, IGM Negative (Negative); HEP B CORE AB, TOT Negative (Negative)
--- NOTE | 2018-12-30 16:46 | PATH ---
Surgical Pathology Report Patient Name: BRIGITTE GUDINO [facility]. Rec. #: [id number] /Age/Gender: 1975 (Age: 43) / M Account: [id number] Location: [facility]/ADOL Taken: 12/25/2018 Received: 12/25/2018 Reported: 12/30/2018 Physicians: Cecil Aguirre M.D. Specimen(s) Received 2 GREEN TOPS Clinical History Portal vein thrombosis Final Diagnosis COMPREHENSIVE FLOW CYTOMETRY performed and interpreted at [place], [place] ([id number]) INTERPRETATION: In the sample analyzed, there is no evidence of B or T-cell proliferative disorders or increased blasts. PAROXYSMAL NOCTURNAL HEMOGLOBINURIA ASSAY BY FLOW performed and interpreted at [place], [place] ([id number]) INTERPRETATION: No phenotypic evidence of Paroxysmal nocturnal hemoglobinuria (PNH). JAK2 V617F MUTATION ANALYSIS BY PCR ([id number]) [facility] showed the following: RESULTS: JAK2 V617F mutation status: Not detected. INTERPRETATION: Negative for JAK2 V617F mutation. See [facility] reports for additional details. Electronically Signed Josephine Styles M.D.
== END 2018-12-26 22:00 | disposition short-term general hospital (02) | DRG 442 ==
LOC: JER 22:13 → JERBED 12-24 03:59 → J4S 12-24 04:50
PROVIDERS: ADMIT Internal Medicine; ATTEND Hospitalist
DX: I81 Portal vein thrombosis (principal); J98.11 Atelectasis; K21.9 Gastro-esophageal reflux disease without esophagitis; Z88.0 Allergy status to penicillin; G71.00 Muscular dystrophy, unspecified; E66.9 Obesity, unspecified; Z68.34 Body mass index [BMI] 34.0-34.9, adult; D69.6 Thrombocytopenia, unspecified; R16.1 Splenomegaly, not elsewhere classified; K63.89 Other specified diseases of intestine
CPT/HCPCS: 36415; 74177-TC; 80053; 81003; 81240; 81241; 83036; 83690; 83735; 84100; 84484; 85025; 85027; 85302; 85303; 85305; 85306; 85610; 85613; 85730; 85732; 86146; 86704; 86706; 86707; 86708; 86709; 86803; 86850; 86900; 86901; 87086; 87340; 88300-TC; 93005; 93010; 96365; 99283-25; 99284-25; J0131; J1644